=== PATIENT | female | born 1995 | race Caucasian/White ===

== ENCOUNTER 2021-05-10 16:23 | Emergency (ER) | payer OTHER, SELFPAY ==
[2021-05-10 16:23] VITALS: BP 186/115; PULSE 107; RESP 16; TEMP 36.4; O2SAT 98; BMI 68.5
[2021-05-10 16:34] VITALS: BP 168/111
--- NOTE | 2021-05-10 16:39 | EKG12_ITS ---
Test Reason : HYPERTENSION Blood Pressure : / mmHG Vent. Rate : 086 BPM Atrial Rate : 086 BPM P-R Int : 162 ms QRS Dur : 088 ms QT Int : 346 ms P-R-T Axes : 052 078 048 degrees QTc Int : 414 ms Normal sinus rhythm Normal ECG Confirmed by RYAN HODGE, GER ([id number]), editor index RHONDA ADORNO ([id number]) on 05/14/2021 10:31:41 AM Referred By: MR Confirmed By:GER DAVIS MD
--- NOTE | 2021-05-10 16:39 | CT_ITS ---
STUDY: CT BRAIN WITHOUT CONTRAST REASON FOR EXAM: Female, 26 years old. confusion RADIATION DOSAGE (If Supplied By Facility): CTDIvol = ( 44.99 ) mGy, DLP = ( 762.36 ) mGycm TECHNIQUE: Transaxial CT imaging of the brain was performed without administration of intravenous contrast material. Individualized dose optimization techniques were used for this CT. COMPARISON: No relevant priors. FINDINGS: Normal soft tissue structures. Normal calvarium. Normal size ventricles and extra-axial spaces for the patient''s age. Normal white matter tracts of the cerebral hemispheres. Normal basal ganglia and thalami. Normal brainstem. Normal cerebellum. There is no intracranial hemorrhage. There are no findings of an acute ischemic infarction. Normal visualized paranasal sinuses. CT/Brain/Head without Contrast IMPRESSION: Normal unenhanced CT scan of the brain. Electronically Signed: Lencho Chin MD at 17:19 EST Tel , Service support ,
--- NOTE | 2021-05-10 16:41 | EDS_ITS ---
HPI History of Present Illness Chief Complaint: Hypertension Narrative Narrative: Patient presenting for evaluation secondary to hypertension and abnormal feelings. Patient has a underlying history of migraines, she is on Topamax on a daily basis. Patient states that yesterday she started to have an abnormal feeling that potentially could have been consistent with the onset of a migraine so she took dejs-jez-[id number] pain medications and drink some caffeine. States that the symptoms seem to persist and were more atypical for a migraine. She reports that as a foggy type feeling, with her feeling somewhat slow to respond. She denies any numbness or weakness. She denies any pain. She denies any visual changes or speech difficulty associated with it. Patient took her blood pressure, it was noted to be in the 170s and 180s she presented to an outside facility who treated her for migraine, she was discharged but never actually had any sort of improvement or resolution of her symptoms. She is presenting today with the same symptoms and continued hypertension. She states that she does not typically have a history of hypertension and is on no medications for that. She denies any recent head injuries. She denies any recent illnesses. Review of systems otherwise negative [facility] Medical History no medical history Home Medications Topamax 05/10/21 [History Last Taken Unknown] lisinopril 5 mg PO DAILY #14 tab 05/10/21 [Rx Last Taken Unknown] Allergy/AdvReac Type Severity Reaction Status Date / Time [place] Allergy Hives Uncoded 05/10/21 16:25 [place] AdvReac Rash Uncoded 05/10/21 16:26 Family History no significant family his Surgical History no surgical history Social History Smoking Status: Never smoker ROS ROS ED Constitutional Constitutional ED: Denies chills or fever(s) ENT ENT ED: Denies rhinorrhea Cardiovascular Cardiovascular: Denies chest pain Respiratory/Chest Respiratory/Chest: Reports dyspnea; Denies cough Gastrointestinal Gastrointestinal: Denies abdominal pain, diarrhea, nausea or vomiting Genitourinary Genitourinary ED: Denies dysuria or hematuria Musculoskeletal Musculoskeletal: Denies back pain Integumentary Denies rash Neurologic Neurologic: Reports as per HPI; Denies paresthesias or weakness Psychiatric Psychiatric: Denies depression Endocrine Endocrinology: Denies fatigue Allergic/Immunologic Allergic/Immunologic ED: Denies urticaria EXAM Physical Exam Const Vital Signs: 05/10/21 16:23 05/10/21 16:34 05/10/21 16:37 Temperature 97.6 F L Temperature Source Temporal Pulse Rate 107 H Respiratory Rate 16 Respiratory Effort Short of Breath Respiratory Pattern Normal Blood Pressure 186/115 H 168/111 H Blood Pressure Mean 138 130 Pulse Ox 98 Oxygen Delivery Method Room Air Positive well nourished, well developed and obese General Appearance ED: well developed and NAD Nutritional Appearance: obese HEENT Reports moist mucous membranes Negative for trauma or tenderness Eyes EOMs intact bilaterally Neck no lymphadenopathy, supple and no JVD Chest Wall inspection of chest normal Resp normal respiratory effort and clear to auscultation bilaterally Cardio regular rate, regular rhythm, no murmurs and peripheral pulses 2+ throughout GI normal to inspection, nondistended, normoactive bowel sounds, non-tender and no masses Palpation: soft Back/Spine normal to inspection Extremity normal to inspection General Extremety ED: Negative for tenderness Neuro oriented x3 and no sensory deficits noted Sensorium / Orientation: alert Motor Exam: strength 5/5 throughout Psych mental status grossly normal Skin no rashes or lesions noted MDM MDM MDM Narrative Medical decision making narrative: Patient presenting for evaluation due to what sounds like symptomatic hypertension. An EKG was obtained was found to be unremarkable. CBC and chemistry and troponin were unremarkable. Chest x-ray by my personal review as well as radiology is unremarkable. CT imaging of the patient's brain was negative. Patient's blood pressure in the emergency department maintained around 180s and 160s systolic with about 115 diastolic. Patient likely has an element of persistent hypertension. I believe that she would benefit from treatment with antihypertensives. Patient will be started on a course of lisinopril. First dose given in the emergency department. Patient was discharged in stable condition. Lab Data Labs: Laboratory Results - last 24 hr 05/10/21 05/10/21 16:53 16:53 WBC 9.9 RBC 4.44 Hgb 11.5 L Hct 36.5 L MCV 82.2 MCH 25.9 L MCHC 31.5 L RDW Std Deviation 42.9 RDW Coeff of Ingrid 14.4 Plt Count 304 MPV 10.1 Immature Gran % (Auto) 0.400 Neut % (Auto) 57.9 Lymph % (Auto) 32.3 [place] % (Auto) 7.3 Eos % (Auto) 1.7 Baso % (Auto) 0.4 Absolute Neuts (auto) 5.7 Absolute Lymphs (auto) 3.19 Nucleated RBC % 0 Sodium 141 Potassium 3.8 Chloride 107 Carbon Dioxide 28.0 Anion Gap 6 BUN 15 Creatinine 0.76 Estim Creat Clear Calc 88.72 Est GFR (MDRD) Af Amer 119 Est GFR (MDRD) Non-Af 98 BUN/Creatinine Ratio 19.8 Glucose 106 Calcium 8.5 Troponin I High Sens 6 Radiography Diagnostic Testing: Clinical Impression(s) from Imaging Studies Brain CT 05/10/21 16:39 IMPRESSION: Normal unenhanced CT scan of the brain. Electronically Signed: Lencho Chin MD at 17:19 EST Tel , Service support , Chest X-Ray 05/10/21 17:10 IMPRESSION: Normal x-ray examination of the chest. Electronically Signed: Lencho Chin MD at 17:30 EST Tel , Service support , EKG Initial EKG: Attestation: I personally reviewed and interpreted this EKG as follows: (Normal sinus rhythm of [address] segments normal T waves normal TX and QTc intervals no evidence acute ischemia or arrhythmia) Discharge Plan Triage Chief Complaint: Hypertension ED Provider: Chago Nguyen Dx/Rx/DC Orders Clinical Impression: Hypertension Instructions: ED Hypertension New Begin Treatment Prescriptions: New lisinopril 5 mg tablet 5 mg PO DAILY Qty: 14 RF: 0 No Action Topamax RF: 0 Primary Care Provider: Lili Adhikari Referrals: Lili Adhikari MD [Primary Care Provider] - (Keep your scheduled appointment)
[2021-05-10 17:05] LABS: Absolute Lymphocyte Count 3.19 X10^3/uL (0.83-4.51); Absolute Neutrophil Count 5.7 X10^3/uL (2.0-7.7); Basophil# 0.04 X10^3/uL; Basophil% 0.4 % (0-1); Eosinophil# 0.17 X10^3/uL; Eosinophils% 1.7 % (0-5); Hematocrit 36.5 % (37-47); Hemoglobin 11.5 g/dL (12.0-15.0); Lymphocyte # 3.19 X10^3/ul (0.83-4.51); Lymphocyte % 32.3 % (19-41); Mean Corp Hgb Conc 31.5 g/dL (32-36); Mean Corpuscular Hgb 25.9 pg (27.0-32.0); Mean Corpuscular Volume 82.2 fL (81-99); Mean Platelet Vol. 10.1 fl (6.2-12.0); Monocyte# 0.72 X10^3/uL; Monocyte% 7.3 % (0-10); NRBC Flagged by Analyzer 0 % (0-5); Neutrophil # 5.72 X10^3/uL (2.7-7.7); Neutrophil % 57.9 % (47-70); Platelet Count 304 K/mm3 (150-450); RBC Distribution Width CV 14.4 % (11.6-14.6); RBC Distribution Width SD 42.9 fl (35.1-43.9); Red Blood Count 4.44 M/mm3 (4.2-5.4); White Blood Count 9.9 K/mm3 (4.4-11.0)
--- NOTE | 2021-05-10 17:10 | RAD_ITS ---
STUDY: X-RAY CHEST REASON FOR EXAM: Female, 26 years old. Dyspnea TECHNIQUE: PA and lateral views of the chest. COMPARISON: None. FINDINGS: The lungs are clear and expanded. There is no demonstrated pleural abnormality. Normal size heart. Normal mediastinum and sergey. Normal visualized pulmonary arteries. Normal visualized aortic arch and descending thoracic aorta. Normal visualized thoracic spine. Normal visualized ribs, clavicles, and shoulders. There is no demonstrated abnormality of the visualized soft tissue structures of the upper abdomen. RAD/Chest PA and Lateral IMPRESSION: Normal x-ray examination of the chest. Electronically Signed: Lencho Chin MD at 17:30 EST Tel , Service support ,
[2021-05-10 17:24] LABS: Anion Gap 6 (5-15); BUN 15 mg/dL (7-18); BUN/Creat Ratio 19.8 RATIO (10-20); Calcium,Total 8.5 mg/dL (8.5-10.1); Chloride 107 mmol/L (98-107); Creatinine, Serum 0.76 mg/dL (0.55-1.02); EST Glomerular Filtration Rate 98 mL/min (>60); Est Glom Filt Rate - Afr Amer 119 mL/min (>60); Estimated Creatinine Clearance 88.72 ml/min; Glucose 106 mg/dL (74-106); Potassium 3.8 mmol/L (3.5-5.1); Sodium Level 141 mmol/L (136-145); Troponin-I HS 6 pg/mL (3.0-54.0)
[2021-05-10 17:58] VITALS: BP 156/94; PULSE 93; RESP 18; O2SAT 98
[2021-05-10] MEDS: Lisinopril 5 MG Tablet PO (19:08)
[2021-05-10 19:10] VITALS: BP 138/98; PULSE 88; RESP 18; O2SAT 99
== END 2021-05-10 19:12 | disposition home or self-care (01) ==
PROVIDERS: Emergency Provider Emergency Medicine; PCP Internal Medicine
DX: I10 Essential (primary) hypertension (principal); R06.00 Dyspnea, unspecified; G43.909 Migraine, unspecified, not intractable, without status migrainosus; E66.9 Obesity, unspecified; Z79.899 Other long term (current) drug therapy
CPT/HCPCS: 70450; 71046; 80048; 84484; 85025; 93005; 99285; A4216

== ENCOUNTER 2023-05-06 03:02 | Emergency (ER) | payer BC, SELFPAY ==
[2023-05-06 03:04] VITALS: BP 188/115; PULSE 106; RESP 18; TEMP 36.6; O2SAT 99; BMI 70.6
--- NOTE | 2023-05-06 03:30 | EX.ED.VIS.HA ---
HPI History of Present Illness Chief Complaint: Headache Informant: patient Narrative Narrative: Nontraumatic headache couple hours prior to arrival. History of migraines. No fevers. No recent head injuries. Photophobia and phonophobia. Nausea and vomiting. History of similar. States when symptoms like this comes to the ER for migraine cocktail with improvement. Denies history of gastric ulcers or kidney injury. Prior similar symptoms: Yes PFSH PFSH Medical History ADD (attention deficit disorder) Anemia Migraine Home Medications bupropion HCl 300 mg 24 hr tablet, extended release 300 mg PO QHS 05/06/23 [History Last Taken Unknown] ferrous sulfate 325 mg (65 mg iron) tablet (iron) 325 mg PO DAILY 05/06/23 [History Last Taken Unknown] ondansetron 4 mg disintegrating tablet 4 mg PO Q6H PRN nausea and vomiting 05/06/23 [History Last Taken Unknown] rimegepant 75 mg disintegrating tablet (Nurtec ODT) 75 mg PO QODAY 05/06/23 [History Last Taken Unknown] rizatriptan 10 mg disintegrating tablet 10 mg translingual Q2H PRN migraine headache 05/06/23 [History Last Taken Unknown] Allergy/AdvReac Type Severity Reaction Status Date / Time bee venom protein (honey bee) Allergy Hives Verified 05/06/23 03:04 Food Allergies: Uncoded Allergy Hives Verified 05/06/23 03:04 Family History no significant family his Surgical History (Updated 05/06/23 @ 03:05 by Gisel Shaw) History of lumbar laminectomy for spinal cord decompression Hx of cholecystectomy Social History Smoking Status: Never smoker ROS ROS ED Constitutional Constitutional ED: Denies chills, fever(s) or sweats Eyes Eyes: Denies change in vision ENT ENT ED: Denies dysphagia or sore throat Cardiovascular Cardiovascular: Denies chest pain, leg edema, palpitations or racing heartbeat Respiratory/Chest Respiratory/Chest: Denies cough, dyspnea or dyspnea on exertion Gastrointestinal Gastrointestinal: Reports nausea and vomiting; Denies abdominal pain or diarrhea Genitourinary Genitourinary ED: Denies dysuria, hematuria or urinary frequency Musculoskeletal Musculoskeletal: Denies back pain, extremity pain or neck pain Integumentary Denies rash or wounds Neurologic Neurologic: Reports headache(s); Denies paresthesias or weakness EXAM Physical Exam Const Vital Signs: 05/06/23 03:04 05/06/23 05:05 Temperature 97.8 F Temperature Source Temporal Pulse Rate 106 H 84 Respiratory Rate 18 16 Blood Pressure 188/115 H 154/100 H Blood Pressure Mean 139 118 Pulse Ox 99 99 Positive well nourished and well developed General Appearance ED: well developed and NAD HEENT Reports moist mucous membranes normocephalic and atraumatic Eyes PERRL, EOMs intact bilaterally and conjunctivae normal General Eye ED: Yes normal appearance of both eyes Neck no lymphadenopathy, supple and no meningeal signs General: Negative for tenderness Chest Wall Chest: Negative for tenderness Resp normal respiratory effort and normal air movement Effort and Inspection: symmetric chest movement; Negative for respiratory distress Cardio regular rate, regular rhythm and no murmurs Peripheral Pulses: pulses 2+ throughout GI normal to inspection, nondistended, normoactive bowel sounds and non-tender Palpation: Negative for guarding or rebound tenderness present Back/Spine no CVA tenderness and no thoracic nor lumbar tenderness Extremity normal to inspection General Extremety ED: Negative for edema or tenderness General Extremity: Negative for edema Neuro oriented x3, CN's II-XII intact bilaterally and no sensory deficits noted Sensorium / Orientation: awake and alert Skin no rashes or lesions noted and no wounds MDM MDM MDM Narrative Medical decision making narrative: Interventions / MDM: Differential diagnosis: Migraine headache Diagnosis considered but do not suspect: No clinical meningitis My EKG interpretation: N/A Imaging independently reviewed and interpreted by myself: N/A External documents reviewed: N/A Test considered but not ordered:N/A ED course: History of migraines similar headaches with nausea and vomiting. IV established for fluids and migraine cocktail. 0420: Patient with improving symptoms. 0454: Clinically significantly better per patient. Discharged with outpatient follow-up. All questions were answered. Re-evaluation: stable Disposition discussed with patient/family/significant other: Patient Case discussed with consulting clinician: N/A This note was generated with [employer] dictation software. It may contain incorrect words, spelling, and punctuation that were not noted in checking the note before signing. Discharge Plan Triage Chief Complaint: Headache ED Provider: Devin Carey Dx/Rx/DC Orders Clinical Impression: Migraine headache, Nausea & vomiting Instructions: ED, Migraine (Classical) Prescriptions: No Action bupropion HCl 300 mg tablet extended release 24 hr 300 mg PO QHS Nurtec ODT 75 mg tablet,disintegrating 75 mg PO QODAY rizatriptan 10 mg tablet,disintegrating 10 mg translingual Q2H PRN (Reason: migraine headache) ondansetron 4 mg tablet,disintegrating 4 mg PO Q6H PRN (Reason: nausea and vomiting) Patient Comments: dissolve 1 tablet ON TONGUE every 6 hours if needed for nausea OR vomiting ferrous sulfate [iron] 325 mg (65 mg iron) tablet 325 mg PO DAILY Primary Care Provider: Lili Adhikari Referrals: Lili Adhikari MD [Primary Care Provider] - 1 Week Disposition Disposition: Home, Self Care Discharge Date/Time: 05/06/23 05:06
[2023-05-06] MEDS: 0.9% Normal Saline (1000mL) 1,000 ML 999 ML IV (03:43)
[2023-05-06] MEDS: Ketorolac 15 MG/ML Vial IV (03:45)
[2023-05-06] MEDS: Metoclopramide 10 MG/2 ML Vial IV (03:45)
[2023-05-06] MEDS: DiphenhydrAMINE 50 MG/ML Syringe 25 MG IV (03:45)
[2023-05-06 05:05] VITALS: BP 154/100; PULSE 84; RESP 16; O2SAT 99
== END 2023-05-06 05:06 | disposition home or self-care (01) ==
PROVIDERS: Emergency Provider Emergency Medicine; PCP Internal Medicine; Visit Provider Emergency Medicine
DX: G43.909 Migraine, unspecified, not intractable, without status migrainosus (principal); Z79.899 Other long term (current) drug therapy
CPT/HCPCS: 96361; 96374; 96375; 99283; J7030; A4216

== ENCOUNTER → 2023-08-26 | Outpatient (CLI) | payer BC, SELFPAY ==
[2023-08-26 17:22] LABS: Amylase 32 U/L (25-115); Lipase 16 U/L (13-75)
--- OUTSIDE RECORDS SUMMARY | 2023-08-27 00:25 | XMS RPT_ITS | CCD ---
Author Name Unknown Address [address] [place] [id number] Organization [facility] Care Team Providers Care 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 Name Role Phone DARIANA LUA DO Attending Unavailable DARIANA LUA DO Primary Care Unavailable DARIANA LUA DO Admitting Unavailable MAR ALTMAN Admitting Unavailable MAR ALTMAN Attending Unavailable MAR ALTMAN Primary Care Unavailable Onofre HODGE, Lili Primary Care Provider Onofre HODGE, Lili Primary Care Provider Lili Adhikari MD Primary Care Provider BRAXTON PARMAR MD Attending Unavailable PHYSICIAN, NONE Primary Care Unavailable GANTA, LILI Primary Care Unavailable OLDER, MIRELLA Attending Unavailable GANTA, LILI Primary Care Unavailable ENRIQUEZ, KAYLEY Attending Unavailable ENRIQUEZ, KAYLEY Referring Unavailable GANTA, LILI Primary Care Unavailable OLDER, MIRELLA Referring Unavailable OLDER, MIRELLA Referring Unavailable GANTA, LILI Primary Care Unavailable OLDER, MIRELLA Attending Unavailable GANTA, LILI Primary Care Unavailable ENRIQUEZ, KAYLEY Attending Unavailable ENRIQUEZ, KAYLEY Referring Unavailable GANTA, LILI Primary Care Unavailable OLDER, MIRELLA Attending Unavailable GANTA, LILI Primary Care Unavailable ENRIQUEZ, KAYLEY Attending Unavailable GANTA, LILI Primary Care Unavailable OLDER, MIRELLA Attending Unavailable GANTA, LILI Primary Care Unavailable OLDER, MIRELLA Referring Unavailable GANTA, LILI Primary Care Unavailable OLDER, MIRELLA Attending Unavailable GANTA, LILI Primary Care Unavailable OLDER, MIRELLA Referring Unavailable GANTA, LILI Primary Care Unavailable GANTA, LILI Primary Care Unavailable OLDER, MIRELLA Referring Unavailable Allergies Allergy Classification Reported Allergen(s) Allergy Type Date of Onset Reaction(s) Facility (20 sources) corn starch; Translations: [CORN STARCH] Drug Allergy 03-14-2021 Rash [facility] Work Phone: (20 sources) Seasonal allergy; Translations: [SEASONAL ALLERGIES] Allergy to substance 10-19-2014 Intolerance [facility] (20 sources) Bee Venom Protein (Honey Bee); Translations: [BEE VENOM PROTEIN (HONEY BEE)] Drug Allergy 03-14-2021 Hives [facility] Work Phone: Medications Current Medications Medication Drug Class(es) Dates Sig (Normalized) Sig (Original) phentermine hydrochloride 37.5 mg oral tablet (3 sources) Sympathomimetic Amine Anorectic Start: 10-19-2021 End: 11-18-2021 take 1 tablet by mouth once daily Phentermine HCl 37.5 mg tablet Indications: Morbid obesity (HCC) Take 1 tablet by mouth once daily for 30 days. 30 tablet 0 10/19/2021 11/18/2021 Active Completed/Discontinued Medications Medication Drug Class(es) Dates Sig (Normalized) Sig (Original) amLODIPine 2.5 mg oral tablet (3 sources) Dihydropyridine Calcium Channel Kathy Start: 08-08-2023 take 1 tablet by mouth once daily amLODIPine (NORVASC) 2.5 mg tablet Take 1 tablet by mouth once daily. 30 tablet 1 08/08/2023 Active Problems Active Problems Problem Classification Problem Date Documented Date Episodic/Chronic Administrative/social admission (2 sources) Patient encounter status; Translations: [Dietary counseling and surveillance] Episodic Attention-deficit, conduct, and disruptive behavior disorders (5 sources) Adult attention deficit hyperactivity disorder ; Translations: [Attention-deficit hyperactivity disorder, unspecified type] Chronic Attention-deficit, conduct, and disruptive behavior disorders (1 source) Attention-deficit hyperactivity disorder, unspecified type; Translations: [Adult ADHD] Onset: 11-29-2022 Chronic Deficiency and other anemia (1 source) Iron deficiency anemia; Translations: [Iron deficiency anemia, unspecified] 02-14-2023 Episodic Diseases of white blood cells (2 sources) Leukocytosis; Translations: [Elevated white blood cell count, unspecified] Onset: 08-14-2023 08-13-2023 Chronic Essential hypertension (20 sources) Essential hypertension; Translations: [Essential (primary) hypertension] Onset: 08-29-2021 08-29-2021 Chronic Headache; including migraine (20 sources) Migraine; Translations: [Migraine, unspecified, not intractable, without status migrainosus] Onset: 03-14-2021 03-14-2021 Chronic Other nutritional; endocrine; and metabolic disorders (16 sources) Morbid obesity; Translations: [Body mass index (BMI) 60.0-69.9, adult] Onset: 12-02-2014 Chronic Other nutritional; endocrine; and metabolic disorders (11 sources) Severe obesity; Translations: [Morbid (severe) obesity due to excess calories] Onset: 12-02-2014 12-06-2022 Chronic Other nutritional; endocrine; and metabolic disorders (3 sources) Morbid (severe) obesity due to excess calories; Translations: [Class 3 severe obesity with serious comorbidity and body mass index (BMI) of 60.0 to 69.9 in adult, unspecified obesity type (HCC)] Onset: 12-02-2014 Chronic Other nutritional; endocrine; and metabolic disorders (1 source) Body mass index (BMI) 60.0-69.9, adult; Translations: [Class 3 severe obesity with serious comorbidity and body mass index (BMI) of 60.0 to 69.9 in adult, unspecified obesity type (HCC)] Onset: 02-07-2023 Chronic Other nutritional; endocrine; and metabolic disorders (1 source) Body mass index (BMI) 50.0-59.9, adult; Translations: [Class 3 severe obesity with body mass index (BMI) of 50.0 to 59.9 in adult, unspecified obesity type, unspecified whether serious comorbidity present (HCC)] Onset: 12-06-2022 Chronic Past or Other Problems Problem Classification Problem Date Documented Date Episodic/Chronic Contraceptive and procreative management (1 source) Encounter for other general counseling and advice on contraception; Translations: [General counseling and advice for contraceptive management] Onset: 12-06-2022 Episodic Immunizations and screening for infectious disease (2 sources) Encounter for screening for infections with a predominantly sexual mode of transmission; Translations: [Encounter for immunization] Onset: 12-06-2022 Episodic Nausea and vomiting (20 sources) Postoperative nausea and vomiting; Translations: [Nausea with vomiting, unspecified] Onset: 12-02-2014 12-02-2014 Episodic Nutritional deficiencies (2 sources) Iron deficiency; Translations: [Iron deficiency] Onset: 02-10-2023 02-10-2023 Episodic Other screening for suspected conditions (not mental disorders or infectious disease) (1 source) Encounter for screening for malignant neoplasm of cervix; Translations: [Screening for cervical cancer] Onset: 12-06-2022 Episodic Results Test Name Value Interpretation Reference Range Facil ity Vital Signs Date Time Vital Sign Value Performing Clinician Hugh hein 08-08-2023 14:08-0500 Diastolic blood pressure 99 mm[Hg] Mirella Older WOOD CAULKER.MARKET RESEARCH ANALYST Work Phone: [facility] 08-08-2023 14:08-0500 Systolic blood pressure 155 mm[Hg] Mirella Older WOOD CAULKER.MARKET RESEARCH ANALYST Work Phone: [facility] 08-08-2023 13:37-0500 Body weight 179.17 kg Mirella Older WOOD CAULKER.MARKET RESEARCH ANALYST Work Phone: [facility] 08-08-2023 13:37-0500 Heart rate 89 /min Mirella Older WOOD CAULKER.MARKET RESEARCH ANALYST Work Phone: [facility] 08-08-2023 13:37-0500 Respiratory rate 16 /min Mirella Older WOOD CAULKER.MARKET RESEARCH ANALYST Work Phone: [facility] 08-08-2023 13:37-0500 SaO2% (BldA) [Mass fraction] 97 % Mirella Older WOOD CAULKER.MARKET RESEARCH ANALYST Work Phone: [facility] 02-07-2023 13:05-0400 Body weight 162.84 kg Mirella Older WOOD CAULKER.MARKET RESEARCH ANALYST Work Phone: [facility] 02-07-2023 13:05-0400 Diastolic blood pressure 76 mm[Hg] Mirella Older WOOD CAULKER.MARKET RESEARCH ANALYST Work Phone: [facility] 02-07-2023 13:05-0400 Heart rate 99 /min Mirella Older WOOD CAULKER.MARKET RESEARCH ANALYST Work Phone: [facility] 02-07-2023 13:05-0400 Respiratory rate 16 /min Mirella Older WOOD CAULKER.MARKET RESEARCH ANALYST Work Phone: [facility] 02-07-2023 13:05-0400 SaO2% (BldA) [Mass fraction] 98 % Mirella Older WOOD CAULKER.MARKET RESEARCH ANALYST Work Phone: [facility] 02-07-2023 13:05-0400 Systolic blood pressure 122 mm[Hg] Mirella Older WOOD CAULKER.MARKET RESEARCH ANALYST Work Phone: [facility] 01-14-2023 15:59-0400 Diastolic blood pressure 70 mm[Hg] Kayley Enriquez WOOD CAULKER.MARKET RESEARCH ANALYST Work Phone: [facility] 01-14-2023 15:59-0400 Heart rate 89 /min Kayley Enriquez WOOD CAULKER.MARKET RESEARCH ANALYST Work Phone: [facility] 01-14-2023 15:59-0400 SaO2% (BldA) [Mass fraction] 98 % Kayley Enriquez WOOD CAULKER.MARKET RESEARCH ANALYST Work Phone: [facility] 01-14-2023 15:59-0400 Systolic blood pressure 124 mm[Hg] Kayley Enriquez WOOD CAULKER.MARKET RESEARCH ANALYST Work Phone: [facility] 01-14-2023 15:25-0400 Body weight 163.75 kg Kayley Enriquez WOOD CAULKER.MARKET RESEARCH ANALYST Work Phone: [facility] 12-27-2022 08:12-0400 Body weight 162.84 kg Mirella Older WOOD CAULKER.MARKET RESEARCH ANALYST Work Phone: [facility] 12-27-2022 08:12-0400 Diastolic blood pressure 88 mm[Hg] Mirella Older WOOD CAULKER.MARKET RESEARCH ANALYST Work Phone: [facility] 12-27-2022 08:12-0400 Heart rate 80 /min Mirella Older WOOD CAULKER.MARKET RESEARCH ANALYST Work Phone: [facility] 12-27-2022 08:12-0400 Respiratory rate 16 /min Mirella Older WOOD CAULKER.MARKET RESEARCH ANALYST Work Phone: [facility] 12-27-2022 08:12-0400 Systolic blood pressure 132 mm[Hg] Mirella Older WOOD CAULKER.MARKET RESEARCH ANALYST Work Phone: [facility] 11-29-2022 11:20-0400 Diastolic blood pressure 79 mm[Hg] Mirella Older WOOD CAULKER.MARKET RESEARCH ANALYST Work Phone: [facility] 11-29-2022 11:20-0400 Systolic blood pressure 123 mm[Hg] Mirella Older WOOD CAULKER.MARKET RESEARCH ANALYST Work Phone: [facility] 11-29-2022 10:54-0400 Body temperature 98.4 [degF] Mirella Older WOOD CAULKER.MARKET RESEARCH ANALYST Work Phone: [facility] 11-29-2022 10:54-0400 Body weight 160.57 kg Mirella Older WOOD CAULKER.MARKET RESEARCH ANALYST Work Phone: [facility] 11-29-2022 10:54-0400 Heart rate 84 /min Mirella Older WOOD CAULKER.MARKET RESEARCH ANALYST Work Phone: [facility] 11-29-2022 10:54-0400 Respiratory rate 16 /min Mirella Older WOOD CAULKER.MARKET RESEARCH ANALYST Work Phone: [facility] 11-29-2022 10:54-0400 SaO2% (BldA) [Mass fraction] 99 % Mirella Older WOOD CAULKER.MARKET RESEARCH ANALYST Work Phone: [facility] 08-30-2022 11:33-0500 Diastolic blood pressure 82 mm[Hg] Mirella Older WOOD CAULKER.MARKET RESEARCH ANALYST Work Phone: [facility] 08-30-2022 11:33-0500 Systolic blood pressure 141 mm[Hg] Mirella Older WOOD CAULKER.MARKET RESEARCH ANALYST Work Phone: [facility] 08-30-2022 10:54-0500 Body weight 158.31 kg Mirella Older WOOD CAULKER.MARKET RESEARCH ANALYST Work Phone: [facility] 08-30-2022 10:54-0500 Heart rate 76 /min Mirella Older WOOD CAULKER.MARKET RESEARCH ANALYST Work Phone: [facility] 08-30-2022 10:54-0500 Respiratory rate 16 /min Mirella Older WOOD CAULKER.MARKET RESEARCH ANALYST Work Phone: [facility] 01-03-2022 12:55-0400 Body weight 158.76 kg Mirella Older WOOD CAULKER.MARKET RESEARCH ANALYST Work Phone: [facility] 01-03-2022 12:55-0400 Diastolic blood pressure 74 mm[Hg] Mirella Older WOOD CAULKER.MARKET RESEARCH ANALYST Work Phone: [facility] 01-03-2022 12:55-0400 Heart rate 80 /min Mirella Older WOOD CAULKER.MARKET RESEARCH ANALYST Work Phone: [facility] 01-03-2022 12:55-0400 Respiratory rate 16 /min Mirella Older WOOD CAULKER.MARKET RESEARCH ANALYST Work Phone: [facility] 01-03-2022 12:55-0400 Systolic blood pressure 122 mm[Hg] Mirella Older WOOD CAULKER.MARKET RESEARCH ANALYST Work Phone: [facility] 11-22-2021 14:03-0400 Body weight 162.39 kg Mirella Older WOOD CAULKER.MARKET RESEARCH ANALYST Work Phone: [facility] 11-22-2021 14:03-0400 Diastolic blood pressure 78 mm[Hg] Mirella Older WOOD CAULKER.MARKET RESEARCH ANALYST Work Phone: [facility] 11-22-2021 14:03-0400 Heart rate 82 /min Mirella Older WOOD CAULKER.MARKET RESEARCH ANALYST Work Phone: [facility] 11-22-2021 14:03-0400 Respiratory rate 16 /min Mirella Older WOOD CAULKER.MARKET RESEARCH ANALYST Work Phone: [facility] 11-22-2021 14:03-0400 Systolic blood pressure 132 mm[Hg] Mirella Older WOOD CAULKER.MARKET RESEARCH ANALYST Work Phone: [facility] 10-25-2021 14:09-0400 Body weight 164.2 kg Mirella Older WOOD CAULKER.MARKET RESEARCH ANALYST Work Phone: [facility] 10-25-2021 14:09-0400 Diastolic blood pressure 82 mm[Hg] Mirella Older WOOD CAULKER.MARKET RESEARCH ANALYST Work Phone: [facility] 10-25-2021 14:09-0400 Heart rate 88 /min Mirella Older WOOD CAULKER.MARKET RESEARCH ANALYST Work Phone: [facility] 10-25-2021 14:09-0400 Respiratory rate 16 /min Mirella Older WOOD CAULKER.MARKET RESEARCH ANALYST Work Phone: [facility] 10-25-2021 14:09-0400 Systolic blood pressure 128 mm[Hg] Mirella Older WOOD CAULKER.MARKET RESEARCH ANALYST Work Phone: [facility] 09-27-2021 14:01-0400 Body weight 166.92 kg Mirella Oconnell WOOD CAULKER.MARKET RESEARCH ANALYST Work Phone: [facility] 09-27-2021 14:01-0400 Diastolic blood pressure 84 mm[Hg] Mirella Oconnell WOOD CAULKER.MARKET RESEARCH ANALYST Work Phone: [facility] 09-27-2021 14:01-0400 Heart rate 92 /min Mirella Older WOOD CAULKER.MARKET RESEARCH ANALYST Work Phone: [facility] 09-27-2021 14:01-0400 Respiratory rate 16 /min Mirella Older WOOD CAULKER.MARKET RESEARCH ANALYST Work Phone: [facility] 09-27-2021 14:01-0400 Systolic blood pressure 130 mm[Hg] Mirella Oconnell WOOD CAULKER.MARKET RESEARCH ANALYST Work Phone: [facility] Encounters Encounter Date Encounter Type Care Provider Facility Start: 08-15-2023 Telephone encounter Mirella Oconnell WOOD CAULKER.MARKET RESEARCH ANALYST Work Phone: [facility] Procedures Date Procedure Procedure Detail Performing Clinician Start: 01-14-2023 Urine test visual color cmprsn nirmals Kayley Enriquez WOOD CAULKER.MARKET RESEARCH ANALYST Work Phone: Start: 09-27-2021 Adult depression screening assessment Mirella Oconnell WOOD CAULKER.MARKET RESEARCH ANALYST Work Phone: Plan of Treatment Date Care Activity Detail Author Start: 08-24-2032 Urine microalbumin profile [facility] Start: 12-06-2025 PAP TESTING PAP TESTING [facility] Start: 12-06-2025 Screening for malign ant neoplasm of cervix Pap Testing [facility] Start: 08-08-2024 Annual PCP Team Ion Implant Machine Operator mary Disease Visit Annual PCP Team Chronic Disease Visit [facility] Start: 02-08-2024 ANNUAL PCP TEAM MANAGER HOME [facility]ALTHCARE MARY DISEASE VISIT ANNUAL PCP TEAM CHRONIC DISEASE VISIT [facility] Start: 02-08-2024 BP CONTROLLED (<130/80) BP CONTROLLE D (<130/80) [facility] Start: 01-15-2024 BP CONTROLLED (<130/80) BP CONTROLLE D (<130/80) [facility] Start: 12-28-2023 ANNUAL PCP TEAM MANAGER HOME HEALTHCARE MARY DISEASE VISIT ANNUAL PCP TEAM CHRONIC DISEASE VISIT [facility] Start: 11-30-2023 ANNUAL PCP TEAM MANAGER HOME HEALTHCARE MARY DISEASE VISIT ANNUAL PCP TEAM CHRONIC DISEASE VISIT [facility] Start: 11-30-2023 BP CONTROLLED (<130/80) BP CONTROLLE D (<130/80) [facility] Start: 08-31-2023 ANNUAL PCP TEAM MANAGER HOME HEALTHCARE MARY DISEASE VISIT ANNUAL PCP TEAM CHRONIC DISEASE VISIT [facility] Start: 08-31-2023 HEPATITIS B (1 of 3 - 3-dose series) HEPATITIS B (1 of 3 - 3-dose series) [facility] Immunizations Immunization Date Immunization Notes Care Provider Rogerio joseph 12-06-2022 Human Papillomavirus 9-valent vaccine Mirella Older WOOD CAULKER.[facility] Work Phone: [facility] Work Phone: 08-24-2022 tetanus toxoid, redu dimitri diphtheria toxoid, and acellular pertussis vaccine, adsorbed Mirella Older WOOD CAULKER.[facility] Work Phone: [facility] Work Phone: 04-06-2021 influenza, seasonal, injectable Mirella Older WOOD CAULKER.[facility] Work Phone: [facility] 04-06-2021 influenza virus vacc ine, unspecified formulation Mirella Older WOOD CAULKER.[facility] Work Phone: [facility] 08-25-2013 human papilloma viru s vaccine, quadrivalent Mirella Older WOOD CAULKER.[facility] Work Phone: [facility] Work Phone: 08-25-2013 immune globulin, intramuscular Mirella Older WOOD CAULKER.MARKET RESEARCH ANALYST Work Phone: [facility] Work Phone: 01-10-2000 diphtheria, tetanus toxoids and acellular pertussis vaccine, unspecified formulation Mirella Older WOOD CAULKER.[facility] Work Phone: [facility] Work Phone: 01-10-2000 measles, mumps and rubella virus vaccine Mirella Older WOOD CAULKER.[facility] Work Phone: [facility] Work Phone: 01-10-2000 trivalent poliovirus vaccine, live, oral [facility] Eagle [facility] Work [facility]: [facility] Work Phone: Payers Date Payer Category Payer Unknown BLUE CARD PPO 2022 Unknown ANTHEM BLUE CARD PPO OOS [id number] 2022-Present [phone] [address] [place] [address] PPO [id number] 2022 Unknown [id number] 2020 Private Health Insurance [facility] CHOICE PLUS [id number] 2020-Present [phone] [address] [place] [address] HMO [id number] 1995 Unknown [id number] 1995 Unknown [id number] 1995 Unknown [id number] Private Health Insurance [id number] Social History Date Type Detail Facility Start: 03-08-2021 End: 12-06-2022 Tobacco smoking status NHIS Never smoked tobacco [facility] Work Phone: Start: 09-21-2021 End: 01-03-2022 Alcohol intake Current non-drinker of alcohol (finding) [facility] Start: 08-28-2021 End: 08-24-2022 History SDOH Alcohol Frequency 2 [facility] Start: 08-28-2021 End: 08-24-2022 History SDOH Alcohol Std Drinks 1 [facility] Start: 08-28-2021 History SDOH Social Connections Phone 4 [facility] Start: 08-28-2021 End: 08-24-2022 History SDOH Social Connections Living 7 [facility] Start: 08-28-2021 End: 08-24-2022 History SDOH Physical Activity DPW 3 [facility] Start: 08-28-2021 End: 08-24-2022 History SDOH Financial 5 [facility] Start: 1995 Sex Assigned At Female [facility] Start: 09-17-2021 End: 01-03-2022 Exposure to SARS-CoV-2 (event) Unable to assess [facility] Start: 03-08-2021 End: 12-06-2022 Tobacco use and exposure Smokeless tobacco non-user [facility] Start: 08-24-2022 History SDOH Social Connections Meetings 98 [facility] Start: 08-24-2022 History SDOH Physical Activity MPS 6 [facility] Start: 12-06-2022 End: 03-28-2023 Alcohol intake Current drinker of alcohol (finding) [facility] Start: 12-06-2022 Alcohol Comment rare [facility] Start: 08-23-2022 End: 11-29-2022 History of Social function [facility] Start: 08-23-2022 End: 11-29-2022 Social connection and isolation panel [facility] Do you belong to any clubs or organizations such as quaker groups, unions, fraternal or athletic groups, or school groups? No [facility] How often do you att end meetings of the clubs or organizations you belong to? Patient refused [facility] Are you now , , , , never or living with a partner? Never [facility] How often to you hav e a drink containing alcohol? 2-4 times a month [facility] How many standard dr inks containing alcohol do you have on a typical day? 1 or 2 [facility] How often do you hav e 6 or more drinks on 1 occasion? Never [facility] Do you feel stress - tense, restless, nervous, or anxious, or unable to sleep at night because your mind is troubled all the time - these days [OSQ] Not at all [facility] (I/We) worried whemarlon er (my/our) food would run out before (I/we) got money to buy more. Never true [facility] Start: 09-27-2021 Gender identity Identifies as female gender (finding) [facility] Start: 09-27-2021 Sexual orientation Heterosexual (finding) [facility] Clinical Notes 09-27-2021 to 08-18-2023 Telephone Encounter - Mirella Oconnell APRN.CNP - 08/18/2023 7:26 AM ESTTelephone Encounter - Primo Cartagena Ma - 08/15/2023 3:14 PM ESTTelephone Encounter - Mirella Oconnell APRN.CNP - 08/15/2023 1:35 PM EST Note Date & Type Note Facility 08-18-2023 Miscellaneous Notes Noted. Will review further at follow up. Mirella Oconnell APRN.CNP Patient started at the beginning of last week, thought she was done. Woke up this am and started bleeding heavily. Tenderness in lower abdomen, not cramping, just general tenderness. Advised patient she may reach out to her Hot Mix Operator if having concerns with cycle, verbalized understanding. Is patient by any chance on her menstrual cycle? If not we need to recheck her urine at her follow up appointment. Thank you Mirella Oconnell APRN.CNP documented in this encounter [facility] 08-14-2023 Miscellaneous Notes Patient notified. Urine is ordered. Will need evaluated for sinus concerns if they continue. Thank you Mirella Oconnell APRN.CNP patient returned call: patient has sinus drainage, cough, UA frequency. Nurse tried to book appt but no available openings left for this week. Please advise on if patient can be worked in. Patient needs called with further information Left message for return call. Any sinus drainage? Cough? Fever? Difficulty or change in urination? Bowel changes? Abdominal pain? If so, we will do further evaluation. If not, will order a urine sample and then recheck blood work at next follow up. Thank you Mriella Oconnell APRN.GIOVANI Pt called and is notified of providers results and questions. Pt voices understanding. She states no signs of infection that she can tell, denies a fever. She reports that she still has the headache it has lightened up a little, but isn't gone. Pt denies any recent steroid use. Annie Crisostomo RN White blood count is higher than usual. Any concern for infection? How is her headache? Any recent steroid usage? Thank you Mirella Oconnell APRN.GIOVANI documented in this encounter [facility] 08-08-2023 Note HNO ID: [id number] Author: MIRELLA OCONNELL APRN.CNP Service: ? Author Type: Nurse Practitioner Type: Progress Notes Filed: 08/08/2023 15:13 Note Text: CC: Patient presents with: Recheck: 6 month follow up HPI Francesca Kate is a 28 year old female who presents today for follow up but has had changes in her migraines with them being more severe, more frequent, and now has a visual aura prior to pain beginning. Increase in migraines now with aura. Pain is more severe and has had to go to the ER twice over the last few months. Most days she has some form of headache but a few times a week will feel like something is crushing her head to both sides. Also has nausea, sensitivity to sound, and sensitivity to light. Denies any recent or previous head injuries, dizziness, syncope, weakness, or numbness. No changes in medications or supplements. Last had eye exam in 2022. Will take ibuprofen, tylenol, benadryl, triptan to try and get rid of migraines but not always effective. HTN: Ms. Kate indicates that she is feeling well and denies any symptoms referable to elevated blood pressure. Specifically denies chest pain, palpitations, dyspnea, and peripheral edema. Is not currently on any blood pressure medications. She does not check BP's generally. Feels like the pain from migraines makes it worse. Last 3 Encounter BP Readings: Date: BP: 08/08/2023 162/100 - 155/99 03/28/2023 168/110 02/07/2023 122/76 REVIEW OF SYSTEMS See HPI PAST MEDICAL HISTORY Diagnosis Date ADD (attention deficit disorder) Class 3 severe obesity with body mass index (BMI) of 50.0 to 59.9 in adult, unspecified obesity type, unspecified whether serious comorbidity present (HCC) Migraine headaches Migraine with aura PAST SURGICAL HISTORY Procedure Laterality Date CORE DECOMPRESSION - HIP Left 06/30/2010 EGD INSERT INTRAUTERINE DEVICE 01/14/2023 LAPAROSCOPY SURG CHOLECYSTECTOMY 12/07/2014 ALLERGIES Baby Powder Pure Cornstarch [Harper Starch], Bee Venom Protein (Honey Bee), and Seasonal Allergies MEDICATIONS buPROPion XL (WELLBUTRIN XL) 300 mg 24 hr tablet Take 1 tablet by mouth once daily. topiramate (TOPAMAX) 25 mg tablet Take 1 tablet by mouth two times a day. amLODIPine (NORVASC) 2.5 mg tablet Take 1 tablet by mouth once daily. ferrous sulfate 325 mg (65 mg iron) tablet Take 1 tablet by mouth once daily. rimegepant (NURTEC ODT) 75 mg disintegrating tablet Take 1 tablet by mouth every other day. levonorgestrel (MIRENA) 21 mcg/24 hours (8 yrs) 52 mg IUD 1 Each by INTRAUTERINE route as directed. ondansetron orally disintegrating (ZOFRAN ODT) 4 mg disintegrating tablet Take 1 tablet by mouth every 6 hours as needed for nausea/vomiting. rizatriptan ([facility] [facility] MAGISTRATE) 10 mg disintegrating tablet Take 1 tablet by mouth as needed. May repeat in 2 hours if needed. Blood Pressure Kit-Extra Large kit 1 Each once daily. FAMILY HISTORY Problem Relation Age of Onset Obesity Mother Alcohol/Drug Father Obesity Father Obesity Sister Obesity Sister No Known Problems Maternal Grandmother Alcohol/Drug Maternal Grandfather Cancer Maternal Grandfather Diabetes Maternal Grandfather Obesity Maternal Grandfather Obesity Paternal Grandmother Alcohol/Drug Paternal Grandfather Colon Cancer Paternal Grandfather Social History Tobacco Use Smoking status: Never Smokeless tobacco: Never Vaping Use Vaping Use: Never used Substance Use Topics Alcohol use: Yes Comment: rare Drug use: No PHYSICAL EXAM BP 155/99 Pulse 89 Resp 16 Wt (!) 179.2 kg (395 lb) LMP 03/07/2023 (Exact Date) SpO2 97% BMI 67.80 kg/m? General Appearance: well appearing, in no acute distress, alert Pysch: mood and affect broad and appropriate Skin: Skin color, texture, turgor normal for age; Eyes: PERRLA, EOM's intact, conjunctiva pink and moist, no icterus, sclera white, non-injected Lungs: Lungs clear to auscultation. No wheezing, rhonchi, rales. Heart: RRR without murmur, gallop, or rubs. No ectopy Neurological: Gait normal. Reflexes normal and symmetric. Sensation intact., speech normal, mental status intact Health maintenance reviewed with patient: Hepatitis C Screening Never done HIV Screening Never done BP Controlled (<130/80) due on 10/25/2022 Influenza Vaccine(1) due on 02/28/2023 Covid-19 Vaccine( season) due on 02/28/2023 HPV Vaccine(3 - 3-dose series) due on 04/07/2023 Depression Assessment due on 06/30/2023 Hepatitis B Vaccine(1 of 3 - 3-dose series) due on 08/31/2023 Annual PCP Team Chronic Disease Visit due on 02/08/2024 Pap Testing due on 12/06/2025 DTaP,Tdap,Td Vaccine(3 - Td or Tdap) due on 08/24/2032 DATA REVIEWED: No new labs ASSESSMENT/PLAN: 1. Migraine with aura and without status migrainosus, not intractable - ICD9: 346.00, ICD10: G43.109 (primary diagnosis) - with the recent increase and addition of aura feel CT of brain is indicated - topirimate martinez (more content not included)... [facility] 08-08-2023 History of Presen t illness Narrative CC: Patient presents with: Recheck: 6 month follow up HPI Francesca Kate is a 28 year old female who presents today for follow up but has had changes in her migraines with them being more severe, more frequent, and now has a visual aura prior to pain beginning. Increase in migraines now with aura. Pain is more severe and has had to go to the ER twice over the last few months. Most days she has some form of headache but a few times a week will feel like something is crushing her head to both sides. Also has nausea, sensitivity to sound, and sensitivity to light. Denies any recent or previous head injuries, dizziness, syncope, weakness, or numbness. No changes in medications or supplements. Last had eye exam in 2022. Will take ibuprofen, tylenol, benadryl, triptan to try and get rid of migraines but not always effective. HTN: Ms. Kate indicates that she is feeling well and denies any symptoms referable to elevated blood pressure. Specifically denies chest pain, palpitations, dyspnea, and peripheral edema. Is not currently on any blood pressure medications. She does not check BP's generally. Feels like the pain from migraines makes it worse. Last 3 Encounter BP Readings: Date: BP: 08/08/2023 162/100 - 155/99 03/28/2023 168/110 02/07/2023 122/76 REVIEW OF SYSTEMS See HPI PAST MEDICAL HISTORY Diagnosis Date ADD (attention deficit disorder) Class 3 severe obesity with body mass index (BMI) of 50.0 to 59.9 in adult, unspecified obesity type, unspecified whether serious comorbidity present (HCC) Migraine headaches Migraine with aura PAST SURGICAL HISTORY Procedure Laterality Date CORE DECOMPRESSION - HIP Left 06/30/2010 EGD INSERT INTRAUTERINE DEVICE 01/14/2023 LAPAROSCOPY SURG CHOLECYSTECTOMY 12/07/2014 ALLERGIES Baby Powder Pure Cornstarch [Harper Starch], Bee Venom Protein (Honey Bee), and Seasonal Allergies MEDICATIONS buPROPion XL (WELLBUTRIN XL) 300 mg 24 hr tablet Take 1 tablet by mouth once daily. topiramate (TOPAMAX) 25 mg tablet Take 1 tablet by mouth two times a day. amLODIPine (NORVASC) 2.5 mg tablet Take 1 tablet by mouth once daily. ferrous sulfate 325 mg (65 mg iron) tablet Take 1 tablet by mouth once daily. rimegepant (NURTEC ODT) 75 mg disintegrating tablet Take 1 tablet by mouth every other day. levonorgestrel (MIRENA) 21 mcg/24 hours (8 yrs) 52 mg IUD 1 Each by INTRAUTERINE route as directed. ondansetron orally disintegrating (ZOFRAN ODT) 4 mg disintegrating tablet Take 1 tablet by mouth every 6 hours as needed for nausea/vomiting. rizatriptan ([facility] [address] MAGISTRATE) 10 mg disintegrating tablet Take 1 tablet by mouth as needed. May repeat in 2 hours if needed. Blood Pressure Kit-Extra Large kit 1 Each once daily. FAMILY HISTORY Problem Relation Age of Onset Obesity Mother Alcohol/Drug Father Obesity Father Obesity Sister Obesity Sister No Known Problems Maternal Grandmother Alcohol/Drug Maternal Grandfather Cancer Maternal Grandfather Diabetes Maternal Grandfather Obesity Maternal Grandfather Obesity Paternal Grandmother Alcohol/Drug Paternal Grandfather Colon Cancer Paternal Grandfather Social History Tobacco Use Smoking status: Never Smokeless tobacco: Never Vaping Use Vaping Use: Never used Substance Use Topics Alcohol use: Yes Comment: rare Drug use: No PHYSICAL EXAM BP 155/99 Pulse 89 Resp 16 Wt (!) 179.2 kg (395 lb) LMP 03/07/2023 (Exact Date) SpO2 97% BMI 67.80 kg/m General Appearance: well appearing, in no acute distress, alert Pysch: mood and affect broad and appropriate Skin: Skin color, texture, turgor normal for age; Eyes: PERRLA, EOM's intact, conjunctiva pink and moist, no icterus, sclera white, non-injected Lungs: Lungs clear to auscultation. No wheezing, rhonchi, rales. Heart: RRR without murmur, gallop, or rubs. No ectopy Neurological: Gait normal. Reflexes normal and symmetric. Sensation intact., speech normal, mental status intact Health maintenance reviewed with patient: Hepatitis C Screening Never done HIV Screening Never done BP Controlled (<130/80) due on 10/25/2022 Influenza Vaccine(1) due on 02/28/2023 Covid-19 Vaccine(3 - season) due on 02/28/2023 HPV Vaccine(3 - 3-dose series) due on 04/07/2023 Depression Assessment due on 06/30/2023 Hepatitis B Vaccine(1 of 3 - 3-dose series) due on 08/31/2023 Annual PCP Team Chronic Disease Visit due on 02/08/2024 Pap Testing due on 12/06/2025 DTaP,Tdap,Td Vaccine(3 - Td or Tdap) due on 08/24/2032 DATA REVIEWED: No new labs ASSESSMENT/PLAN: 1. Migraine with aura and without status migrainosus, not intractable - ICD9: 346.00, ICD10: G43.109 (primary diagnosis) - with the recent increase and addition of aura feel CT of brain is indicated - topirimate had worked in the past at first, so will continue nurtec and add the topiramate. - no red flag symptoms on exam. - go to ER for sudden and/or severe headache, weakness, numbness, confusion or any other urgent concern - TOPIRAMATE 25 MG TABLET - CT BRAIN WO IVCON - COMP METABOLIC PANEL - CBC - CONSULT TO NEUROLOGY 2. Essential hypertension - ICD9: 401.9, ICD10: I10 - Uncontrolled - adding amlodipine low dose. Feel propanolol would not be effective enough. - follow up in 2-4 weeks. - Recommend home blood pressure monitoring, to bring results to next visit - Encouraged sodium restriction, DASH or Mediterranean diet - Recommend regular aerobic exercise - COMP METABOLIC PANEL - CBC Prescription instructions reviewed with patient as applicable. Potential red flag symptoms discussed with the patient. Reviewed appropriate action plan to take if red flag symptoms occur. Patient agreeable to treatment plan. Mirella Oconnell APRN.CNP documented in this encounter [facility] 03-28-2023 Note HNO ID: [id number] Author: Kayley Enriquez APRN.CNP Service: ? Author Type: Nurse Practitioner Type: Progress Notes Filed: 03/28/2023 8:04 AM Note Text: Med Aide offered: Patient declines. Francesca Kate presents today for IUD check. She had a Mirena placed on 01/14/2023 for contraception. Menses every 28-30 days lasting 3 days. 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 She has had spotting for 2 weeks after menses since placement. REVIEW OF SYSTEMS: No fever, chills or pain PHYSICAL EXAMINATION: BP 168/110 Wt 371 lb (168.3kg) LMP 03/07/2023 ABDOMEN:soft and non-tender EXTERNAL GENITALIA: Normal genitalia and Bartholins, Urethra, Sken'e normal CERVIX: smooth, no lesions. IUD strings visible. UTERUS: non-tender IMPRESSION/PLAN: IUD correctly positioned. Follow up for annual exam or sooner if needed. Considering metabolic surgery as it is covered by health insurance. Kayley Enriquez APRN.CNP [facility] 02-14-2023 Miscellaneous Notes TC to patient who verbalized understanding of providers message and has no questions at this time. DEAN Menendez Iron levels as expected are low. I am sending in an iron supplement to be taken once daily with a meal. Recheck blood counts in 2-4 weeks. Thank you Mirella Oconnell APRN.CNP documented in this encounter [facility] 02-10-2023 Miscellaneous Notes Probable cause of low iron. Will await iron results. Thank you Mirella Oconnell APRN.CNP Spoke with patient. Given message from provider's office. Patient verbalizes understanding. Patient states she had abnormally heavy periods the last two months and this months has been abnormally long. She had the Mirena placed mid December. SPOOL [employer]ULER is aware. Agnieszka Howe RN Left message for return call. Patients blood work still decreasing indicating probable iron deficiency. Does she have any abnormal bleeding? Heavy periods? I want to get iron levels on her to verify prior to starting any supplements. Thank you Mirella Oconnell APRN.GIOVANI documented in this encounter [facility] 02-07-2023 Note HNO ID: [id number] Author: Mirella Oconnell APRN.CNP Service: ? Author Type: Nurse Practitioner Type: Progress Notes Filed: 02/07/2023 2:47 PM Note Text: CC: Patient presents with: Recheck: Medication follow up HPI Francesca Kate is a 28 year old female who presents today for follow up on migraines since starting nurtec. Since starting nurtec every other day for preventative therapy, patient reports great improvement with migraines even with extra stress at work. Has only 1-2 slight headaches a week that have no other accompanying symptoms and resolve completely with tylenol or motrin. HTN: Ms. Kate indicates that she is feeling well and denies any symptoms referable to elevated blood pressure. Specifically denies headache, chest pain, palpitations, dyspnea, and peripheral edema. Currently not treated with medication. Previously on lisinopril She does not check BP's generally. Francesca denies regular aerobic exercise. She watches her diet for sodium, low fat and low cholesterol some of the time. Last 3 Encounter BP Readings: Date: BP: 02/07/2023 122/76 01/14/2023 124/70 12/27/2022 132/88 Concerned as she continues to gain weight. Has increased her caloric intake with work stress and not able to exercise as she is working all the time. REVIEW OF SYSTEMS General: no fevers, no chills, no night sweats, no recurrent infections, no change in appetite, no change in energy, and no significant changes in weight Respiratory: no cough, no wheezing, no shortness of breath, no hemoptysis Cardiovascular: no chest pain, no chest pressure, no palpitations, and no swelling Endocrine: no fatigue, no weight loss, no cold intolerance, no heat intolerance, no polyuria, no polyphagia, and no polydipsia Neurologic: No weakness, numbness, tingling, dizziness, memory loss, syncope. PAST MEDICAL HISTORY Diagnosis Date ADD (attention deficit disorder) Class 3 severe obesity with body mass index (BMI) of 50.0 to 59.9 in adult, unspecified obesity type, unspecified whether serious comorbidity present (HCC) Migraine headaches PAST SURGICAL HISTORY Procedure Laterality Date CORE DECOMPRESSION - HIP Left 06/30/2010 EGD INSERT INTRAUTERINE DEVICE 01/14/2023 LAPAROSCOPY SURG CHOLECYSTECTOMY 12/07/2014 ALLERGIES Baby Powder Pure Cornstarch [Harper Starch], Bee Venom Protein (Honey Bee), and Seasonal Allergies MEDICATIONS levonorgestrel (MIRENA) 21 mcg/24 hours (8 yrs) 52 mg IUD 1 Each by INTRAUTERINE route as directed. rimegepant (NURTEC ODT) 75 mg disintegrating tablet Take 1 tablet by mouth every other day. miSOPROStol (CYTOTEC) 200 mcg tablet Insert 2 tablets vaginally night prior to IUD and 2 tablets morning of procedure. Each dose should be in vagina for 6-8 hours. buPROPion XL (WELLBUTRIN XL) 300 mg 24 hr tablet Take 1 tablet by mouth once daily. ondansetron orally disintegrating (ZOFRAN ODT) 4 mg disintegrating tablet Take 1 tablet by mouth every 6 hours as needed for nausea/vomiting. rizatriptan ([facility] [employer] [facility] MAGISTRATE) 10 mg disintegrating tablet Take 1 tablet by mouth as needed. May repeat in 2 hours if needed. topiramate (TOPAMAX) 50 mg tablet Take 1 tablet by mouth twice daily. Blood Pressure Kit-Extra Large kit 1 Each once daily. FAMILY HISTORY Problem Relation Age of Onset Obesity Mother Alcohol/Drug Father Obesity Father Obesity Sister Obesity Sister No Known Problems Maternal Grandmother Alcohol/Drug Maternal Grandfather Cancer Maternal Grandfather Diabetes Maternal Grandfather Obesity Maternal Grandfather Obesity Paternal Grandmother Alcohol/Drug Paternal Grandfather Colon Cancer Paternal Grandfather Social History Tobacco Use Smoking status: Never Smokeless tobacco: Never Vaping Use Vaping Use: Never used Substance Use Topics Alcohol use: Yes Comment: rare Drug use: No PHYSICAL EXAM BP 122/76 Pulse 99 Resp 16 Wt (!) 162.8 kg (359 lb) LMP 01/01/2023 (Exact Date) SpO2 98% BMI 61.62 kg/m? General Appearance: well appearing, in no acute distress, alert Skin: Skin color, texture, turgor normal for age; Eyes: conjunctiva pink and moist, no icterus, sclera white, non-injected Lungs: Lungs clear to auscultation. No wheezing, rhonchi, rales. Heart: RRR without murmur, gallop, or rubs. No ectopy Health maintenance reviewed with patient: HEPATITIS C SCREENING Never done HIV SCREENING Never done HEPATITIS B(1 of 3 - 3-dose series) due on 08/31/2023 INFLUENZA(1) due on 02/28/2023 HPV VACCINE(3 - 3-dose series) due on 04/07/2023 ANNUAL PCP TEAM CHRONIC DISEASE VISIT due on 12/28/2023 BP CONTROLLED (<130/80) due on 01/15/2024 PAP TESTING due on 12/06/2025 DTAP,TDAP,TD(3 - Td or Tdap) due on 08/24/2032 DEPRESSION ASSESSMENT Completed COVID-19 VACCINE Completed DATA REVIEWED: No new labs ASSESSMENT/PLAN: 1. Other migraine without status migrainosus, not intractable - ICD9: 346.80, ICD10: G43.809 (primary diagnosis (more content not included)... [facility] 02-07-2023 History of Presen t illness Narrative CC: Patient presents with: Recheck: Medication follow up HPI Francesca Kate is a 28 year old female who presents today for follow up on migraines since starting nurtec. Since starting nurtec every other day for preventative therapy, patient reports great improvement with migraines even with extra stress at work. Has only 1-2 slight headaches a week that have no other accompanying symptoms and resolve completely with tylenol or motrin. HTN: Ms. Kate indicates that she is feeling well and denies any symptoms referable to elevated blood pressure. Specifically denies headache, chest pain, palpitations, dyspnea, and peripheral edema. Currently not treated with medication. Previously on lisinopril She does not check BP's generally. Francesca denies regular aerobic exercise. She watches her diet for sodium, low fat and low cholesterol some of the time. Last 3 Encounter BP Readings: Date: BP: 02/07/2023 122/76 01/14/2023 124/70 12/27/2022 132/88 Concerned as she continues to gain weight. Has increased her caloric intake with work stress and not able to exercise as she is working all the time. REVIEW OF SYSTEMS General: no fevers, no chills, no night sweats, no recurrent infections, no change in appetite, no change in energy, and no significant changes in weight Respiratory: no cough, no wheezing, no shortness of breath, no hemoptysis Cardiovascular: no chest pain, no chest pressure, no palpitations, and no swelling Endocrine: no fatigue, no weight loss, no cold intolerance, no heat intolerance, no polyuria, no polyphagia, and no polydipsia Neurologic: No weakness, numbness, tingling, dizziness, memory loss, syncope. PAST MEDICAL HISTORY Diagnosis Date ADD (attention deficit disorder) Class 3 severe obesity with body mass index (BMI) of 50.0 to 59.9 in adult, unspecified obesity type, unspecified whether serious comorbidity present (HCC) Migraine headaches PAST SURGICAL HISTORY Procedure Laterality Date CORE DECOMPRESSION - HIP Left 06/30/2010 EGD INSERT INTRAUTERINE DEVICE 01/14/2023 LAPAROSCOPY SURG CHOLECYSTECTOMY 12/07/2014 ALLERGIES Baby Powder Pure Cornstarch [Harper Starch], Bee Venom Protein (Honey Bee), and Seasonal Allergies MEDICATIONS levonorgestrel (MIRENA) 21 mcg/24 hours (8 yrs) 52 mg IUD 1 Each by INTRAUTERINE route as directed. rimegepant (NURTEC ODT) 75 mg disintegrating tablet Take 1 tablet by mouth every other day. miSOPROStol (CYTOTEC) 200 mcg tablet Insert 2 tablets vaginally night prior to IUD and 2 tablets morning of procedure. Each dose should be in vagina for 6-8 hours. buPROPion XL (WELLBUTRIN XL) 300 mg 24 hr tablet Take 1 tablet by mouth once daily. ondansetron orally disintegrating (ZOFRAN ODT) 4 mg disintegrating tablet Take 1 tablet by mouth every 6 hours as needed for nausea/vomiting. rizatriptan ([facility] [address] MAGISTRATE) 10 mg disintegrating tablet Take 1 tablet by mouth as needed. May repeat in 2 hours if needed. topiramate (TOPAMAX) 50 mg tablet Take 1 tablet by mouth twice daily. Blood Pressure Kit-Extra Large kit 1 Each once daily. FAMILY HISTORY Problem Relation Age of Onset Obesity Mother Alcohol/Drug Father Obesity Father Obesity Sister Obesity Sister No Known Problems Maternal Grandmother Alcohol/Drug Maternal Grandfather Cancer Maternal Grandfather Diabetes Maternal Grandfather Obesity Maternal Grandfather Obesity Paternal Grandmother Alcohol/Drug Paternal Grandfather Colon Cancer Paternal Grandfather Social History Tobacco Use Smoking status: Never Smokeless tobacco: Never Vaping Use Vaping Use: Never used Substance Use Topics Alcohol use: Yes Comment: rare Drug use: No PHYSICAL EXAM BP 122/76 Pulse 99 Resp 16 Wt (!) 162.8 kg (359 lb) LMP 01/01/2023 (Exact Date) SpO2 98% BMI 61.62 kg/m General Appearance: well appearing, in no acute distress, alert Skin: Skin color, texture, turgor normal for age; Eyes: conjunctiva pink and moist, no icterus, sclera white, non-injected Lungs: Lungs clear to auscultation. No wheezing, rhonchi, rales. Heart: RRR without murmur, gallop, or rubs. No ectopy Health maintenance reviewed with patient: HEPATITIS C SCREENING Never done HIV SCREENING Never done HEPATITIS B(1 of 3 - 3-dose series) due on 08/31/2023 INFLUENZA(1) due on 02/28/2023 HPV VACCINE(3 - 3-dose series) due on 04/07/2023 ANNUAL PCP TEAM CHRONIC DISEASE VISIT due on 12/28/2023 BP CONTROLLED (<130/80) due on 01/15/2024 PAP TESTING due on 12/06/2025 DTAP,TDAP,TD(3 - Td or Tdap) due on 08/24/2032 DEPRESSION ASSESSMENT Completed COVID-19 VACCINE Completed DATA REVIEWED: No new labs ASSESSMENT/PLAN: 1. Other migraine without status migrainosus, not intractable - ICD9: 346.80, ICD10: G43.809 (primary diagnosis) - much improvement with nurtec, will continue - follow up in 6 months 2. Essential hypertension - ICD9: 401.9, ICD10: I10 - Controlled - Recommend home blood pressure monitoring, to bring results to next visit - Encouraged sodium restriction, DASH or Mediterranean diet - Recommend regular aerobic exercise - CBC + DIFF - BASIC METABOLIC PNL 3. Class 3 severe obesity with serious comorbidity and body mass index (BMI) of 60.0 to 69.9 in adult, unspecified obesity type (HCC) - ICD9: 278.01, V85.44, ICD10: E66.01, Z68.44 Weight increasing - Behavioral intervention - if HgbA1c elevated will try patient on ozempic or other injectable. - TSH BLD - T4 FREE/FREE THYROX - HGB A1C Prescription instructions reviewed with patient as applicable. Potential red flag symptoms discussed with the patient. Reviewed appropriate action plan to take if red flag symptoms occur. Patient agreeable to treatment plan. Mirella Oconnell APRN.GIOVANI documented in this encounter [facility] 01-27-2023 Miscellaneous Notes Pt called in and reports [facility] doesn't have the Nurtec in stock at any of their stores. Let Pt know she can call other pharmacies and see if they have them in stock and call us back. documented in this encounter [facility] 01-14-2023 Note HNO ID: [id number] Author: Kayley Enriquez APRN.GIOVANI Service: ? Author Type: Nurse Practitioner Type: Progress Notes Filed: 01/14/2023 5:05 PM Note Text: Francesca presents today for IUD insertion for contraception. Patient's last menstrual period was 01/01/2023 (exact date). GC/chlamydia: Negative on 12/06/2022 test: negative Side effects including irregular bleeding were discussed with the patient. The patient understands that it should be removed in 8 years or sooner if the patient desires a . IUD source: office provided IUD lot #: [id number] Exp date: 03/29/2025 UNIVERSAL PROTOCOL / SAFETY CHECKLIST Procedure to be Performed: Mirena IUD Insertion Sign In: A Moment of CARE was completed. Personnel directly involved with the procedure wore the appropriate PPE (Personal Protective Equipment). Patient/Surrogate Stated/Verified: PATIENT VERIFIED(optional for EMERGENT procedures): Patient name, Date of , Relevant allergies, and The intended procedure Time Out Communication: Intended patient and procedure match the source documents. Consent documented and matches the intended procedure. Relevant labs, photos, and/or imaging studies have been reviewed. Implant(s) inserted: Correct implant(s) confirmed including size and side. and Expiration date(s) reviewed. Sign Out: SIGN OUT (optional for EMERGENT procedures): All instruments, equipment, possible retained foreign bodies accounted for. Post-procedure follow-up management communicated and Plan of Care Visit completed when applicable. The cervix was prepped with betadine. The uterus sounded to 7.5 cm and the uterus is Midposition.. Using sterile technique, the Mirena IUD was inserted without difficulty and the string was cut to 2.5 cm from the external os of the cervix. Patient tolerated procedure well. PLAN: Patient was advised to observe for signs and symptoms of infection including but not limited to fever, malodorous vaginal discharge and/or pain. The patient was told to check the string monthly for accurate placement. Bleeding expectations were reviewed. Follow up in one month. Kayley Enriquez APRN.[facility] 01-14-2023 Instructions Eliezer Plasencia Cma - 01/14/2023 3:18 PM EDT POST IUD INSTRUCTIONS You may have irregular bleeding during the first 3 months of use. You may have mild-severe cramping for the next 48 hours. You may use over the counter medication (Motrin, Tylenol) as needed. Your IUD must be removed or replaced based on the following table: IUD Type Removed or replaced within: Tiffany 3 years Kyleena 5 years Mirena 8 years Paragard 10 years Call my office for signs/symptoms of infection such as severe cramping, fever, or unusual bleeding. Check for string placement as instructed by your doctor. If you have any additional questions, please contact the office. documented in this encounter [facility] 01-14-2023 History of Presen t illness Narrative Francesca presents today for IUD insertion for contraception. Patient's last menstrual period was 01/01/2023 (exact date). GC/chlamydia: Negative on 12/06/2022 test: negative Side effects including irregular bleeding were discussed with the patient. The patient understands that it should be removed in 8 years or sooner if the patient desires a . IUD source: office provided IUD lot #: [id number] Exp date: 03/29/2025 UNIVERSAL PROTOCOL / SAFETY CHECKLIST Procedure to be Performed: Mirena IUD Insertion Sign In: A Moment of CARE was completed. Personnel directly involved with the procedure wore the appropriate PPE (Personal Protective Equipment). Patient/Surrogate Stated/Verified: PATIENT VERIFIED(optional for EMERGENT procedures): Patient name, Date of , Relevant allergies, and The intended procedure Time Out Communication: Intended patient and procedure match the source documents. Consent documented and matches the intended procedure. Relevant labs, photos, and/or imaging studies have been reviewed. Implant(s) inserted: Correct implant(s) confirmed including size and side. and Expiration date(s) reviewed. Sign Out: SIGN OUT (optional for EMERGENT procedures): All instruments, equipment, possible retained foreign bodies accounted for. Post-procedure follow-up management communicated and Plan of Care Visit completed when applicable. The cervix was prepped with betadine. The uterus sounded to 7.5 cm and the uterus is Midposition.. Using sterile technique, the Mirena IUD was inserted without difficulty and the string was cut to 2.5 cm from the external os of the cervix. Patient tolerated procedure well. PLAN: Patient was advised to observe for signs and symptoms of infection including but not limited to fever, malodorous vaginal discharge and/or pain. The patient was told to check the string monthly for accurate placement. Bleeding expectations were reviewed. Follow up in one month. Kayley Enriquez APRN.CNP documented in this encounter [facility] 12-27-2022 Note HNO ID: [id number] Author: Mirella Oconnell APRN.CNP Service: ? Author Type: Nurse Practitioner Type: Progress Notes Filed: 12/27/2022 5:50 PM Note Text: CC: Patient presents with: Recheck: 4 week migraine follow up HPI Francesca Kate is a 27 year old female who presents today for follow up on migraine. Topamax was increased 4 weeks ago but patient did not tolerate so decreased to 1.5 tabs which she is tolerating but migraines persisted. Started on nurtec but has not picked up from the pharmacy yet. Is going after this appointment to get it. Has had current migraine for 3 days. Pain is to left side of forehead above eye. Pain is a throbbing and accompanied with sensitivity to light and nausea which zofran is helpful at relieving. Has taken tylenol and rizatriptan but this is not helping. Denies any aura, vision changes, weakness, numbness, confusion, or any new symptoms. REVIEW OF SYSTEMS General: no fevers, no chills, no night sweats, no recurrent infections, no change in appetite, no change in energy, and no significant changes in weight Respiratory: no cough, no wheezing, no shortness of breath, no hemoptysis Cardiovascular: no chest pain, no chest pressure, no palpitations, and no swelling Neurologic: No weakness, numbness, tingling, dizziness, memory loss, syncope. PAST MEDICAL HISTORY Diagnosis Date ADD (attention deficit disorder) Class 3 severe obesity with body mass index (BMI) of 50.0 to 59.9 in adult, unspecified obesity type, unspecified whether serious comorbidity present (HCC) Migraine headaches PAST SURGICAL HISTORY Procedure Laterality Date CORE DECOMPRESSION - HIP Left 2010 EGD LAPAROSCOPY SURG CHOLECYSTECTOMY 12/07/14 ALLERGIES Baby Powder Pure Cornstarch [Harper Starch], Bee Venom Protein (Honey Bee), and Seasonal Allergies MEDICATIONS rimegepant (NURTEC ODT) 75 mg disintegrating tablet Take 1 tablet by mouth every other day. miSOPROStol (CYTOTEC) 200 mcg tablet Insert 2 tablets vaginally night prior to IUD and 2 tablets morning of procedure. Each dose should be in vagina for 6-8 hours. buPROPion XL (WELLBUTRIN XL) 300 mg 24 hr tablet Take 1 tablet by mouth once daily. ondansetron orally disintegrating (ZOFRAN ODT) 4 mg disintegrating tablet Take 1 tablet by mouth every 6 hours as needed for nausea/vomiting. rizatriptan ([employer] [employer] MAGISTRATE) 10 mg disintegrating tablet Take 1 tablet by mouth as needed. May repeat in 2 hours if needed. topiramate (TOPAMAX) 50 mg tablet Take 1 tablet by mouth twice daily. Blood Pressure Kit-Extra Large kit 1 Each once daily. FAMILY HISTORY Problem Relation Age of Onset Obesity Mother Alcohol/Drug Father Obesity Father Obesity Sister Obesity Sister No Known Problems Maternal Grandmother Alcohol/Drug Maternal Grandfather Cancer Maternal Grandfather Diabetes Maternal Grandfather Obesity Maternal Grandfather Obesity Paternal Grandmother Alcohol/Drug Paternal Grandfather Colon Cancer Paternal Grandfather Social History Tobacco Use Smoking status: Never Smokeless tobacco: Never Vaping Use Vaping Use: Never used Substance Use Topics Alcohol use: Yes Comment: rare Drug use: No PHYSICAL EXAM BP 132/88 Pulse 80 Resp 16 Wt (!) 162.8 kg (359 lb) LMP 11/28/2022 BMI 61.62 kg/m? General Appearance: well appearing, in no acute distress, alert Skin: Skin color, texture, turgor normal for age; Eyes: PERRLA, EOM's intact, conjunctiva pink and moist, no icterus, sclera white, non-injected Lungs: Lungs clear to auscultation. No wheezing, rhonchi, rales. Heart: RRR without murmur, gallop, or rubs. No ectopy Neurological: Gait normal. Reflexes normal and symmetric. Sensation intact., speech normal, mental status intact, muscle tone normal, muscle strength normal Health maintenance reviewed with patient: HEPATITIS C SCREENING Never done HIV SCREENING Never done BP CONTROLLED (<130/80) due on 10/25/2022 HEPATITIS B(1 of 3 - 3-dose series) due on 08/31/2023 INFLUENZA(Season Ended) due on 02/28/2023 ANNUAL PCP TEAM CHRONIC DISEASE VISIT due on 11/30/2023 PAP TESTING due on 12/06/2025 DTAP,TDAP,TD(3 - Td or Tdap) due on 08/24/2032 DEPRESSION ASSESSMENT Completed COVID-19 VACCINE Completed DATA REVIEWED: No new labs ASSESSMENT/PLAN: 1. Intractable migraine without aura and with status migrainosus - ICD9: 346.13, ICD10: G43.011 - start nurtec as ordered, - discussed going home and laying down to relieve migraine. - KETOROLAC 30 MG/ML (1 ML) INJECTION SOLUTION No red flag symptoms or exam findings. Neuro exam benign - Reviewed headache treatment, prevention and when to seek emergency care; see patient instructions - Follow-up in 6 weeks or earlier if needed. Prescription instructions reviewed with patient as applicable. Potential red flag symptoms discussed with the patient. Reviewed appropriate action plan to take if red flag symptoms occur. Patient agreeable (more content not included)... [facility] 12-27-2022 History of Presen t illness Narrative CC: Patient presents with: Recheck: 4 week migraine follow up HPI Francesca Kate is a 27 year old female who presents today for follow up on migraine. Topamax was increased 4 weeks ago but patient did not tolerate so decreased to 1.5 tabs which she is tolerating but migraines persisted. Started on nurtec but has not picked up from the pharmacy yet. Is going after this appointment to get it. Has had current migraine for 3 days. Pain is to left side of forehead above eye. Pain is a throbbing and accompanied with sensitivity to light and nausea which zofran is helpful at relieving. Has taken tylenol and rizatriptan but this is not helping. Denies any aura, vision changes, weakness, numbness, confusion, or any new symptoms. REVIEW OF SYSTEMS General: no fevers, no chills, no night sweats, no recurrent infections, no change in appetite, no change in energy, and no significant changes in weight Respiratory: no cough, no wheezing, no shortness of breath, no hemoptysis Cardiovascular: no chest pain, no chest pressure, no palpitations, and no swelling Neurologic: No weakness, numbness, tingling, dizziness, memory loss, syncope. PAST MEDICAL HISTORY Diagnosis Date ADD (attention deficit disorder) Class 3 severe obesity with body mass index (BMI) of 50.0 to 59.9 in adult, unspecified obesity type, unspecified whether serious comorbidity present (HCC) Migraine headaches PAST SURGICAL HISTORY Procedure Laterality Date CORE DECOMPRESSION - HIP Left 2010 EGD LAPAROSCOPY SURG CHOLECYSTECTOMY 12/07/14 ALLERGIES Baby Powder Pure Cornstarch [Harper Starch], Bee Venom Protein (Honey Bee), and Seasonal Allergies MEDICATIONS rimegepant (NURTEC ODT) 75 mg disintegrating tablet Take 1 tablet by mouth every other day. miSOPROStol (CYTOTEC) 200 mcg tablet Insert 2 tablets vaginally night prior to IUD and 2 tablets morning of procedure. Each dose should be in vagina for 6-8 hours. buPROPion XL (WELLBUTRIN XL) 300 mg 24 hr tablet Take 1 tablet by mouth once daily. ondansetron orally disintegrating (ZOFRAN ODT) 4 mg disintegrating tablet Take 1 tablet by mouth every 6 hours as needed for nausea/vomiting. rizatriptan ([address] MAGISTRATE) 10 mg disintegrating tablet Take 1 tablet by mouth as needed. May repeat in 2 hours if needed. topiramate (TOPAMAX) 50 mg tablet Take 1 tablet by mouth twice daily. Blood Pressure Kit-Extra Large kit 1 Each once daily. FAMILY HISTORY Problem Relation Age of Onset Obesity Mother Alcohol/Drug Father Obesity Father Obesity Sister Obesity Sister No Known Problems Maternal Grandmother Alcohol/Drug Maternal Grandfather Cancer Maternal Grandfather Diabetes Maternal Grandfather Obesity Maternal Grandfather Obesity Paternal Grandmother Alcohol/Drug Paternal Grandfather Colon Cancer Paternal Grandfather Social History Tobacco Use Smoking status: Never Smokeless tobacco: Never Vaping Use Vaping Use: Never used Substance Use Topics Alcohol use: Yes Comment: rare Drug use: No PHYSICAL EXAM BP 132/88 Pulse 80 Resp 16 Wt (!) 162.8 kg (359 lb) LMP 11/28/2022 BMI 61.62 kg/m General Appearance: well appearing, in no acute distress, alert Skin: Skin color, texture, turgor normal for age; Eyes: PERRLA, EOM's intact, conjunctiva pink and moist, no icterus, sclera white, non-injected Lungs: Lungs clear to auscultation. No wheezing, rhonchi, rales. Heart: RRR without murmur, gallop, or rubs. No ectopy Neurological: Gait normal. Reflexes normal and symmetric. Sensation intact., speech normal, mental status intact, muscle tone normal, muscle strength normal Health maintenance reviewed with patient: HEPATITIS C SCREENING Never done HIV SCREENING Never done BP CONTROLLED (<130/80) due on 10/25/2022 HEPATITIS B(1 of 3 - 3-dose series) due on 08/31/2023 INFLUENZA(Season Ended) due on 02/28/2023 ANNUAL PCP TEAM CHRONIC DISEASE VISIT due on 11/30/2023 PAP TESTING due on 12/06/2025 DTAP,TDAP,TD(3 - Td or Tdap) due on 08/24/2032 DEPRESSION ASSESSMENT Completed COVID-19 VACCINE Completed DATA REVIEWED: No new labs ASSESSMENT/PLAN: 1. Intractable migraine without aura and with status migrainosus - ICD9: 346.13, ICD10: G43.011 - start nurtec as ordered, - discussed going home and laying down to relieve migraine. - KETOROLAC 30 MG/ML (1 ML) INJECTION SOLUTION No red flag symptoms or exam findings. Neuro exam benign - Reviewed headache treatment, prevention and when to seek emergency care; see patient instructions - Follow-up in 6 weeks or earlier if needed. Prescription instructions reviewed with patient as applicable. Potential red flag symptoms discussed with the patient. Reviewed appropriate action plan to take if red flag symptoms occur. Patient agreeable to treatment plan. Mirella Oconnell APRN.CNP documented in this encounter [facility] 12-06-2022 Note HNO ID: [id number] Author: Kayley Enriquez APRN.CNP Service: ? Author Type: Nurse Practitioner Type: Progress Notes Filed: 12/06/2022 4:35 PM Note Text: Med Aide offered: Patient declines. Ma is a 27 year old who presents for an annual gynecologic exam without complaints. Menses: cycles every 28-30 days and 3-5 days of flow. Contraception: condoms interested in IUD HPV vaccine: Yes, has had 1st in series Last Pap: never HPV: never History of abnormal pap: Never Last mammogram: never Sexually active: Yes History of STDS: None Patient concerns for STD exposure: No. 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 History Comments: Sexual Activity: Not Asked; No partner data on record Contraception: No contraception data on record PAST MEDICAL HISTORY Diagnosis Date ADD (attention deficit disorder) Class 3 severe obesity with body mass index (BMI) of 50.0 to 59.9 in adult, unspecified obesity type, unspecified whether serious comorbidity present (HCC) Migraine headaches PAST SURGICAL HISTORY Procedure Laterality Date CORE DECOMPRESSION - HIP Left 2010 EGD LAPAROSCOPY SURG CHOLECYSTECTOMY 12/07/14 FAMILY HISTORY Problem Relation Age of Onset Obesity Mother Alcohol/Drug Father Obesity Father Obesity Sister Obesity Sister No Known Problems Maternal Grandmother Alcohol/Drug Maternal Grandfather Cancer Maternal Grandfather Diabetes Maternal Grandfather Obesity Maternal Grandfather Obesity Paternal Grandmother Alcohol/Drug Paternal Grandfather Colon Cancer Paternal Grandfather SOCIAL HISTORY Social History Tobacco Use Smoking status: Never Smokeless tobacco: Never Substance Use Topics Alcohol use: No Drug use: No REVIEW OF SYSTEMS Abdomen: No abdominal pain, nausea, vomiting, diarrhea, or constipation. No bloating, early satiety, indigestion, or increased flatulence. Bladder: No dysuria, gross hematuria, urinary frequency, urinary urgency, or incontinence. Breast: No breast lumps, nipple d/c, overlying skin changes, redness or skin retraction. Allergies and current medication updated:Yes EXAM: BP 126/82 Ht 5' 4 (1.63m) Wt 349 lb (158.3kg) LMP 11/28/2022 BMI 59.88 kg/(m2). GENERAL: pleasant, female in no apparent distress HEENT: Normocephalic, atraumatic, mucus membranes moist, and no lesions NECK: Supple, full range of motion, no adenopathy, and thyroid normal DERMATOLOGY: Normal, without lesions, non-icteric, and non-hirsute BREAST: soft, non-tender, symmetric, no dominant mass, normal nipple-areolar complex, no lymphadenopathy, and no nipple discharge CHEST: Normal inspiratory effort ABDOMEN: soft, non-tender, and difficult to assess due to body habitus PELVIC: external genitalia normal, normal Bartholin's glands, urethra, [place]'s glands, no vulvar lesions, no cervical lesions, good vaginal support, physiologic discharge present, normal appearing perineal body and perianal region BIMANUAL: no adnexal masses, non-tender, and difficult to palpate due to body habitus RECTOVAGINAL: deferred. NEURO: alert and oriented x3,exam grossly non-focal EXTREMITIES: normal ASSESSMENT/PLAN: 1) Health maintenance: Pap done with reflex HPV. Nutrition, exercise and routine health maintenance exams reviewed. HPV vaccine: 2nd in series given today 2. Screen for STD (sexually transmitted disease) - ICD9: V74.5, ICD10: Z11.3 Declined blood testing. - GC/CHLAMYDIA DNA DET 3. Need for prophylactic vaccination/inoculation against viral disease - ICD9: V04.89, ICD10: Z23 - THER/PROPH/DIAG INJ, SC/IM - HPV VACCINE, 9-VALENT (GARDASIL 9) - HPV VACCINE, 9-VALENT (GARDASIL 9) 4. General counseling and advice for contraceptive management - ICD9: V25.09, ICD10: Z30.09 Interested in IUD. Discussed IUDs ParaGard, Kyleena, Mirena with R/B/A. She would like to proceed with Mirena IUD insertion. Procedure discussed and use of misoprostol, either vaginal or oral, discussed. - INSERT INTRAUTERINE DEVICE - MISOPROSTOL 200 MCG TABLET Schedule when on menses Ibuprofen 600-800 prior to appointment Vaginal cytotec Eat before appointment. 5. Class 3 severe obesity with body mass index (BMI) of 50.0 to 59.9 in adult, unspecified obesity type, unspecified whether serious comorbidity present (HCC) - ICD9: 278.01, V85.43, ICD10: E66.01, Z68.43 -Strong family history of obesity. She has lost 20 pounds in the past but has regained. Weight loss options discussed and she is interested in metabolic surgery. - [facility] 6) Follow up one year or sooner as needed Kayley Enriquez APRN.GIOVANI Patient identified by name and date (more content not included)... [facility] 11-29-2022 Note HNO ID: [id number] Author: Mirella Oconnell APRN.GIOVANI Service: ? Author Type: Nurse Practitioner Type: Progress Notes Filed: 11/29/2022 1:50 PM Note Text: CC: Patient presents with: Yearly Exam: Annual visit HPI Francesca Kate is a 27 year old female who presents today for annual physical exam. Exercise: works out regularly 5 times per week with walking. Diet: Watches diet for salt (salty snacks, added salt, processed frozen/canned foods), sugary/sweet snacks, unhealthy fats: Yes Caffeine: less than 1 a day as it causes migraines Water intake: 80 ounces a day on average. HTN: Ms. Kate indicates that she is feeling well and denies any symptoms referable to elevated blood pressure. Specifically denies headache, chest pain, palpitations, dyspnea, and peripheral edema. Patient denies any side effects of her medication(s) and is compliant with their regimen. She does check BP's away from this office with average BP's in the 120s-130/70s-80 range. Last 3 Encounter BP Readings: Date: BP: 11/29/2022 123/79 08/30/2022 141/82[BP Jose Luis[ 01/03/2022 122/74 Migraines have been increasing over the last month. Having 2-3 a week and one that lasted 5 days. Denies any chagne in diet, meds, activities, supplements, drinks, sinus congestion, sinus drainage, weakness, confusion. Prior to migraine her left arm will go numb or starts with a burning under her eye. Does not have numbness outside of the migraine. Pain is typically at right eye and/or right samaritan. Pain is described as a varying type of ache, throbbing, but will get sharp pains with movement. Does have light sensitivity, nausea, weakness, sound sensitivity, and off balance. Denies vomiting, tingling, recent illnesses, vision changes. Saw optometry a few weeks ago without any real concern. Maxalt is usually helpful in stopping migraines but not 100% of the time. Just started her menstrual cycle and uses protection with any sexual intercourse. On wellbutrin for ADHD and well controlled on current treatment. Sleep: is described as normal Alcohol use: does not drink any alcohol Drug use: No Appetite: good Stresses: Denies any major stressor. Suicidal Thoughts: No suicidal ideation, intent or plan Support: Comes from multiple sources including family REVIEW OF SYSTEMS General: no fevers, no chills, no night sweats, no recurrent infections, no change in appetite, no change in energy, and no significant changes in weight Respiratory: no cough, no wheezing, no shortness of breath, no hemoptysis Cardiovascular: no chest pain, no chest pressure, no palpitations, and no swelling GI: No nausea, vomiting, or diarrhea : No history of dysuria, frequency or incontinence Musculoskeletal: Negative for joint pain or swelling, back pain or muscle pain Skin: Negative for lesions, rash, and itching Psych: PHQ2 is 0 Hematologic/Lymph: Negative for prolonged bleeding, bruising easily or swollen nodes Endocrine: no fatigue, no cold intolerance, no heat intolerance, no polyuria, no polyphagia, and no polydipsia Neurologic: No weakness, numbness, tingling, dizziness, memory loss, syncope. PAST MEDICAL HISTORY Diagnosis Date Migraine headaches Morbid obesity (HCC) PAST SURGICAL HISTORY Procedure Laterality Date CORE DECOMPRESSION - HIP Left 2010 EGD LAPAROSCOPY SURG CHOLECYSTECTOMY 12/07/14 ALLERGIES Baby Powder Pure Cornstarch [Harper Starch], Bee Venom Protein (Honey Bee), and Seasonal Allergies MEDICATIONS buPROPion XL (WELLBUTRIN XL) 300 mg 24 hr tablet Take 1 tablet by mouth once daily. ondansetron orally disintegrating (ZOFRAN ODT) 4 mg disintegrating tablet Take 1 tablet by mouth every 6 hours as needed for nausea/vomiting. rizatriptan ([address] [address] MAGISTRATE) 10 mg disintegrating tablet Take 1 tablet by mouth as needed. May repeat in 2 hours if needed. topiramate (TOPAMAX) 50 mg tablet Take 1 tablet by mouth twice daily. Blood Pressure Kit-Extra Large kit 1 Each once daily. lisinopril (ZESTRIL, PRINIVIL) 10 mg tablet Take 1 tablet by mouth once daily. FAMILY HISTORY Problem Relation Age of Onset Alcohol/Drug Maternal Grandfather Alcohol/Drug Paternal Grandfather Alcohol/Drug Father Cancer Maternal Grandfather Colon Cancer Paternal Grandfather Diabetes Maternal Grandfather Social History Tobacco Use Smoking status: Never Smokeless tobacco: Never Substance Use Topics Alcohol use: No Drug use: No PHYSICAL EXAM BP 123/79 Pulse 84 Temp 36.9 ?C (98.4 ?F) (Temporal) Resp 16 Wt (!) 160.6 kg (354 lb) LMP 04/26/2021 SpO2 99% BMI 62.72 kg/m? General Appearance: well appearing, in no acute distress, alert Pysch: mood and affect broad and appropriate Skin: Skin color, texture, turgor normal for age; Eyes: PERRLA, EOMs intact, conjunctiva pink and moist, no icterus, sclera white, non-injected Neck: Thyroid normal size and symmetric without palpable nodules, Neck supple, No adenopath (more content not included)... [facility] 11-29-2022 History of Presen t illness Narrative CC: Patient presents with: Yearly Exam: Annual visit HPI Francesca Kate is a 27 year old female who presents today for annual physical exam. Exercise: works out regularly 5 times per week with walking. Diet: Watches diet for salt (salty snacks, added salt, processed frozen/canned foods), sugary/sweet snacks, unhealthy fats: Yes Caffeine: less than 1 a day as it causes migraines Water intake: 80 ounces a day on average. HTN: Ms. Kate indicates that she is feeling well and denies any symptoms referable to elevated blood pressure. Specifically denies headache, chest pain, palpitations, dyspnea, and peripheral edema. Patient denies any side effects of her medication(s) and is compliant with their regimen. She does check BP's away from this office with average BP's in the 120s-130/70s-80 range. Last 3 Encounter BP Readings: Date: BP: 11/29/2022 123/79 08/30/2022 141/82[BP Jose Luis[ 01/03/2022 122/74 Migraines have been increasing over the last month. Having 2-3 a week and one that lasted 5 days. Denies any chagne in diet, meds, activities, supplements, drinks, sinus congestion, sinus drainage, weakness, confusion. Prior to migraine her left arm will go numb or starts with a burning under her eye. Does not have numbness outside of the migraine. Pain is typically at right eye and/or right samaritan. Pain is described as a varying type of ache, throbbing, but will get sharp pains with movement. Does have light sensitivity, nausea, weakness, sound sensitivity, and off balance. Denies vomiting, tingling, recent illnesses, vision changes. Saw optometry a few weeks ago without any real concern. Maxalt is usually helpful in stopping migraines but not 100% of the time. Just started her menstrual cycle and uses protection with any sexual intercourse. On wellbutrin for ADHD and well controlled on current treatment. Sleep: is described as normal Alcohol use: does not drink any alcohol Drug use: No Appetite: good Stresses: Denies any major stressor. Suicidal Thoughts: No suicidal ideation, intent or plan Support: Comes from multiple sources including family REVIEW OF SYSTEMS General: no fevers, no chills, no night sweats, no recurrent infections, no change in appetite, no change in energy, and no significant changes in weight Respiratory: no cough, no wheezing, no shortness of breath, no hemoptysis Cardiovascular: no chest pain, no chest pressure, no palpitations, and no swelling GI: No nausea, vomiting, or diarrhea : No history of dysuria, frequency or incontinence Musculoskeletal: Negative for joint pain or swelling, back pain or muscle pain Skin: Negative for lesions, rash, and itching Psych: PHQ2 is 0 Hematologic/Lymph: Negative for prolonged bleeding, bruising easily or swollen nodes Endocrine: no fatigue, no cold intolerance, no heat intolerance, no polyuria, no polyphagia, and no polydipsia Neurologic: No weakness, numbness, tingling, dizziness, memory loss, syncope. PAST MEDICAL HISTORY Diagnosis Date Migraine headaches Morbid obesity (HCC) PAST SURGICAL HISTORY Procedure Laterality Date CORE DECOMPRESSION - HIP Left 2010 EGD LAPAROSCOPY SURG CHOLECYSTECTOMY 12/07/14 ALLERGIES Baby Powder Pure Cornstarch [Harper Starch], Bee Venom Protein (Honey Bee), and Seasonal Allergies MEDICATIONS buPROPion XL (WELLBUTRIN XL) 300 mg 24 hr tablet Take 1 tablet by mouth once daily. ondansetron orally disintegrating (ZOFRAN ODT) 4 mg disintegrating tablet Take 1 tablet by mouth every 6 hours as needed for nausea/vomiting. rizatriptan ([facility] MAGISTRATE) 10 mg disintegrating tablet Take 1 tablet by mouth as needed. May repeat in 2 hours if needed. topiramate (TOPAMAX) 50 mg tablet Take 1 tablet by mouth twice daily. Blood Pressure Kit-Extra Large kit 1 Each once daily. lisinopril (ZESTRIL, PRINIVIL) 10 mg tablet Take 1 tablet by mouth once daily. FAMILY HISTORY Problem Relation Age of Onset Alcohol/Drug Maternal Grandfather Alcohol/Drug Paternal Grandfather Alcohol/Drug Father Cancer Maternal Grandfather Colon Cancer Paternal Grandfather Diabetes Maternal Grandfather Social History Tobacco Use Smoking status: Never Smokeless tobacco: Never Substance Use Topics Alcohol use: No Drug use: No PHYSICAL EXAM BP 123/79 Pulse 84 Temp 36.9 C (98.4 F) (Temporal) Resp 16 Wt (!) 160.6 kg (354 lb) LMP 04/26/2021 SpO2 99% BMI 62.72 kg/m General Appearance: well appearing, in no acute distress, alert Pysch: mood and affect broad and appropriate Skin: Skin color, texture, turgor normal for age; Eyes: PERRLA, EOMs intact, conjunctiva pink and moist, no icterus, sclera white, non-injected Neck: Thyroid normal size and symmetric without palpable nodules, Neck supple, No adenopathy Lymph nodes: No cervical lymphadenopathy and No supraclavicular lymphadenopathy Lungs: Lungs clear to auscultation. No wheezing, rhonchi, rales. Heart: RRR without murmur, gallop, or rubs. No ectopy Abdomen: Abdomen soft, non-tender. Bowel sounds normal. No masses, organomegaly Extremities: No deformities, edema, skin discoloration, clubbing or cyanosis. Good capillary refill. Neurological: Gait normal. Reflexes normal and symmetric. Sensation grossly intact., speech normal, mental status intact, muscle tone normal, muscle strength normal HEPATITIS C SCREENING Never done HIV SCREENING Never done DTAP,TDAP,TD(1 - Tdap) Never done PAP TESTING Never done BP CONTROLLED (<130/80) due on 10/25/2022 HEPATITIS B(1 of 3 - 3-dose series) due on 08/31/2023 INFLUENZA(Season Ended) due on 02/28/2023 ANNUAL PCP TEAM CHRONIC DISEASE VISIT due on 08/31/2023 DEPRESSION ASSESSMENT Completed COVID-19 VACCINE Completed ASSESSMENT/PLAN: 1. Annual physical exam - ICD9: V70.0, ICD10: Z00.00 (primary diagnosis) - Counseled on healthy diet and regular exercise - Calcium intake with supplements or by diet of 1000 mg/day for under 50, 2227-4729 mg/day for 50+ - Discussed need and benefit for weight loss. BMI 62.72 kg/(m^2) - Depression screening tool completed and reviewed with patient. Based on score and interview, patient is not at risk for depression and recommended no further intervention at this time. - Follow up for annual exam in one year 2. Migraine without status migrainosus, not intractable, unspecified migraine type - ICD9: 346.90, ICD10: G43.909 - no red flag symptoms on exam - uncontrolled at this time - increasing topamax, if ineffective will consider nurtec - ONDANSETRON 4 MG DISINTEGRATING TABLET - follow up in 4 weeks - go to ER for severe/sudden headache, weakness, numbness, confusion, or any other urgent concerns. 3. Adult ADHD - ICD9: 314.01, ICD10: F90.9 Controlled with current treatment - continue wellbutrin 4. Essential hypertension - ICD9: 401.9, ICD10: I10 - Controlled even after stopping the lisinopril - Recommend home blood pressure monitoring, to bring results to next visit - Encouraged sodium restriction, DASH or Mediterranean diet - Recommend regular aerobic exercise 5. Morbid obesity (HCC) - ICD9: 278.01, ICD10: E66.01 Weight increasing - discussed importance of healthy diet and exercise - if MARTINEZ controlled at next visit can discuss any other possible options Prescription instructions reviewed with patient as applicable. Potential red flag symptoms discussed with the patient. Reviewed appropriate action plan to take if red flag symptoms occur. Patient agreeable to treatment plan. Mirella Oconnell APRN.CNP documented in this encounter [facility] 11-28-2022 Miscellaneous Notes Patient has been identified by name and date of : Yes, Provider Dr. Adhikari Date 11/28/22 Time 9:21 am Pharmacy phones for refill(s): Requested Prescriptions Pending Prescriptions Disp Refills rizatriptan ([facility] MAGISTRATE) 10 mg disintegrating tablet [Pharmacy Med Name: RIZATRIPTAN 10 MG ODT] 4 tablet Sig: dissolve 1 tablet by mouth once daily if needed MAY REPEAT ONCE in 2 hours if needed not more than 2 doses in 1 day or 4 doses in 1 week Date of last office visit in primary care: 08/30/22 next apt 11/29/22 Last 2 Encounter Wt Readings: Date: Wt: 08/30/2022 158.3 kg (349 lb) 01/03/2022 158.8 kg (350 lb) Previous labs/tests for medication: Not applicable Thank you. Rita Foley LPN documented in this encounter [facility] 08-30-2022 Note HNO ID: [id number] Author: Mirella Oconnell APRN.CNP Service: ? Author Type: Nurse Practitioner Type: Progress Notes Filed: 09/11/2022 2:45 PM Note Text: CC: Patient presents with: Recheck: Medication follow up HPI Francesca Kate is a 27 year old female who presents today for routine follow up. Migraines: Controlled well with topamax. Gets an average of 1 time a month that is usually stopped by maxalt, but if too late in taking it is resolved with tylenol ibuprofen and benadryl. Has noticed she is getting the floaty spots and pressure behind the eye letting her know she is going to have a migraine. Migraine is accompanied with nausea, light sensitivity, sound sensitivity, and some dizziness. Denies numbness, tingling, weakness, or confusion. HTN: Ms. Kate indicates that she is feeling well and denies any symptoms referable to elevated blood pressure. Specifically denies headache, chest pain, palpitations, dyspnea, and peripheral edema. Stopped lisinopril a month ago as she didn't like how it made her feel but unable to describe what the feelings were. She does not check BP's generally. Francesca denies regular aerobic exercise. She watches her diet for sodium, low fat and low cholesterol most of the time. Last 3 Encounter BP Readings: Date: BP: 08/30/2022 144/90 01/03/2022 122/74 11/22/2021 132/78 ADHD: controlled well with current wellbutrin dose. Able to concentrate well throughout the day Alcohol use: does not drink any alcohol Drug use: No Appetite: good Stresses: Denies any major stressor. Suicidal Thoughts: No suicidal ideation, intent or plan REVIEW OF SYSTEMS General: no fevers, no chills, no night sweats, no recurrent infections, no change in appetite, no change in energy, and no significant changes in weight Respiratory: no cough, no wheezing, no shortness of breath, no hemoptysis Cardiovascular: no chest pain, no chest pressure, no palpitations, and no swelling GI: No nausea, vomiting, or diarrhea Neurologic: No headache, weakness, numbness, tingling, dizziness, memory loss, syncope. PHQ2 is 0 PAST MEDICAL HISTORY Diagnosis Date Migraine headaches Morbid obesity (HCC) PAST SURGICAL HISTORY Procedure Laterality Date CORE DECOMPRESSION - HIP Left 2010 EGD LAPAROSCOPY SURG CHOLECYSTECTOMY 12/07/14 ALLERGIES Baby Powder Pure Cornstarch [Harper Starch], Bee Venom Protein (Honey Bee), and Seasonal Allergies MEDICATIONS topiramate (TOPAMAX) 50 mg tablet Take 1 tablet by mouth once daily. Take with 25mg dose to equal a total of 75mg. topiramate (TOPAMAX) 25 mg tablet Take 1 tablet with 50mg to equal a 75mg dose rizatriptan ([facility] MAGISTRATE) 10 mg disintegrating tablet Take 1 tablet by mouth as needed. May repeat in 2 hours if needed, not more than 2 in a day and 4 in a week ondansetron orally disintegrating (ZOFRAN ODT) 4 mg disintegrating tablet Take 1 tablet by mouth every 6 hours as needed for nausea/vomiting. Blood Pressure Kit-Extra Large kit 1 Each once daily. buPROPion XL (WELLBUTRIN XL) 300 mg 24 hr tablet Take 1 tablet by mouth once daily. lisinopril (ZESTRIL, PRINIVIL) 10 mg tablet Take 1 tablet by mouth once daily. FAMILY HISTORY Problem Relation Age of Onset Alcohol/Drug Maternal Grandfather Alcohol/Drug Paternal Grandfather Alcohol/Drug Father Cancer Maternal Grandfather Colon Cancer Paternal Grandfather Diabetes Maternal Grandfather Social History Tobacco Use Smoking status: Never Smokeless tobacco: Never Substance Use Topics Alcohol use: No Drug use: No PHYSICAL EXAM BP 141/82 Pulse 76 Resp 16 Wt (!) 158.3 kg (349 lb) LMP 04/26/2021 BMI 61.84 kg/m? General Appearance: well appearing, in no acute distress, alert Skin: Skin color, texture, turgor normal for age; Neck: Thyroid normal size and symmetric without palpable nodules, Neck supple, No adenopathy Lymph nodes: No cervical lymphadenopathy and No supraclavicular lymphadenopathy Lungs: Lungs clear to auscultation. No wheezing, rhonchi, rales. Heart: RRR without murmur, gallop, or rubs. No ectopy Health maintenance reviewed with patient: HEPATITIS B(1 of 3 - 3-dose series) Never done DEPRESSION ASSESSMENT Never done DTAP,TDAP,TD(1 - Tdap) due on 10/25/2022 PAP TESTING due on 10/25/2022 HEPATITIS C SCREENING due on 10/25/2022 HIV SCREENING due on 10/25/2022 COVID-19 VACCINE(2 - Booster for Lidia series) due on 10/25/2022 INFLUENZA(1) due on 12/27/2022 BP CONTROLLED (<130/80) due on 01/03/2023 ANNUAL PCP TEAM CHRONIC DISEASE VISIT due on 01/24/2023 DATA REVIEWED: No new labs ASSESSMENT/PLAN: 1. Essential hypertension - ICD9: 401.9, ICD10: I10 (primary diagnosis) - suboptimal control - patient wanting to exercise and attempt more weight loss to naturally lower her blood pressure - Encouraged dietary sodium restriction/DASH diet - Recommended regular aerobic exercise. - Recommend home blood pressure monitoring, to brin (more content not included)... [facility] 08-30-2022 History of Presen t illness Narrative CC: Patient presents with: Recheck: Medication follow up HPI Francesca Kate is a 27 year old female who presents today for routine follow up. Migraines: Controlled well with topamax. Gets an average of 1 time a month that is usually stopped by maxalt, but if too late in taking it is resolved with tylenol ibuprofen and benadryl. Has noticed she is getting the floaty spots and pressure behind the eye letting her know she is going to have a migraine. Migraine is accompanied with nausea, light sensitivity, sound sensitivity, and some dizziness. Denies numbness, tingling, weakness, or confusion. HTN: Ms. Kate indicates that she is feeling well and denies any symptoms referable to elevated blood pressure. Specifically denies headache, chest pain, palpitations, dyspnea, and peripheral edema. Stopped lisinopril a month ago as she didn't like how it made her feel but unable to describe what the feelings were. She does not check BP's generally. Francesca denies regular aerobic exercise. She watches her diet for sodium, low fat and low cholesterol most of the time. Last 3 Encounter BP Readings: Date: BP: 08/30/2022 144/90 01/03/2022 122/74 11/22/2021 132/78 ADHD: controlled well with current wellbutrin dose. Able to concentrate well throughout the day Alcohol use: does not drink any alcohol Drug use: No Appetite: good Stresses: Denies any major stressor. Suicidal Thoughts: No suicidal ideation, intent or plan REVIEW OF SYSTEMS General: no fevers, no chills, no night sweats, no recurrent infections, no change in appetite, no change in energy, and no significant changes in weight Respiratory: no cough, no wheezing, no shortness of breath, no hemoptysis Cardiovascular: no chest pain, no chest pressure, no palpitations, and no swelling GI: No nausea, vomiting, or diarrhea Neurologic: No headache, weakness, numbness, tingling, dizziness, memory loss, syncope. PHQ2 is 0 PAST MEDICAL HISTORY Diagnosis Date Migraine headaches Morbid obesity (HCC) PAST SURGICAL HISTORY Procedure Laterality Date CORE DECOMPRESSION - HIP Left 2010 EGD LAPAROSCOPY SURG CHOLECYSTECTOMY 12/07/14 ALLERGIES Baby Powder Pure Cornstarch [Harper Starch], Bee Venom Protein (Honey Bee), and Seasonal Allergies MEDICATIONS topiramate (TOPAMAX) 50 mg tablet Take 1 tablet by mouth once daily. Take with 25mg dose to equal a total of 75mg. topiramate (TOPAMAX) 25 mg tablet Take 1 tablet with 50mg to equal a 75mg dose rizatriptan ([facility] MAGISTRATE) 10 mg disintegrating tablet Take 1 tablet by mouth as needed. May repeat in 2 hours if needed, not more than 2 in a day and 4 in a week ondansetron orally disintegrating (ZOFRAN ODT) 4 mg disintegrating tablet Take 1 tablet by mouth every 6 hours as needed for nausea/vomiting. Blood Pressure Kit-Extra Large kit 1 Each once daily. buPROPion XL (WELLBUTRIN XL) 300 mg 24 hr tablet Take 1 tablet by mouth once daily. lisinopril (ZESTRIL, PRINIVIL) 10 mg tablet Take 1 tablet by mouth once daily. FAMILY HISTORY Problem Relation Age of Onset Alcohol/Drug Maternal Grandfather Alcohol/Drug Paternal Grandfather Alcohol/Drug Father Cancer Maternal Grandfather Colon Cancer Paternal Grandfather Diabetes Maternal Grandfather Social History Tobacco Use Smoking status: Never Smokeless tobacco: Never Substance Use Topics Alcohol use: No Drug use: No PHYSICAL EXAM BP 141/82 Pulse 76 Resp 16 Wt (!) 158.3 kg (349 lb) LMP 04/26/2021 BMI 61.84 kg/m General Appearance: well appearing, in no acute distress, alert Skin: Skin color, texture, turgor normal for age; Neck: Thyroid normal size and symmetric without palpable nodules, Neck supple, No adenopathy Lymph nodes: No cervical lymphadenopathy and No supraclavicular lymphadenopathy Lungs: Lungs clear to auscultation. No wheezing, rhonchi, rales. Heart: RRR without murmur, gallop, or rubs. No ectopy Health maintenance reviewed with patient: HEPATITIS B(1 of 3 - 3-dose series) Never done DEPRESSION ASSESSMENT Never done DTAP,TDAP,TD(1 - Tdap) due on 10/25/2022 PAP TESTING due on 10/25/2022 HEPATITIS C SCREENING due on 10/25/2022 HIV SCREENING due on 10/25/2022 COVID-19 VACCINE(2 - Booster for Lidia series) due on 10/25/2022 INFLUENZA(1) due on 12/27/2022 BP CONTROLLED (<130/80) due on 01/03/2023 ANNUAL PCP TEAM CHRONIC DISEASE VISIT due on 01/24/2023 DATA REVIEWED: No new labs ASSESSMENT/PLAN: 1. Essential hypertension - ICD9: 401.9, ICD10: I10 (primary diagnosis) - suboptimal control - patient wanting to exercise and attempt more weight loss to naturally lower her blood pressure - Encouraged dietary sodium restriction/DASH diet - Recommended regular aerobic exercise. - Recommend home blood pressure monitoring, to bring results in on next visit - BP kit ordered - Goal of BP <130/80 - follow up in 3 months 2. Migraine without status migrainosus, not intractable, unspecified migraine type - ICD9: 346.90, ICD10: G43.909 Controlled with current treatment - topamax refilled - ONDANSETRON 4 MG DISINTEGRATING TABLET - go to ER for sudden severe headaches, weakness, numbness, confusion, or any other urgent concerns. 3. Adult ADHD - ICD9: 314.01, ICD10: F90.9 - controlled with Wellbutrin. Will continue at this time. 4. Annual physical exam - ICD9: V70.0, ICD10: Z00.00 - not reviewed at this time. Labs ordered and annual exam scheduled - LIPID PANEL BASIC - CBC + DIFF - COMP METABOLIC PANEL Prescription instructions reviewed with patient as applicable. Potential red flag symptoms discussed with the patient. Reviewed appropriate action plan to take if red flag symptoms occur. Patient agreeable to treatment plan. Mirella Oconnell APRN.CNP documented in this encounter [facility] 05-21-2022 Miscellaneous Notes Patel with [facility] calls to clarify Wellbutrin XL 300 mg 24 hr tablet order. Order is for 1 tablet by mouth once daily. If tolerated, increase to 2 tablets once daily which exceeds the max daily dose of 450 mg. Please clarify. Looks like Sig box not changed when medication ordered previously. Deleted increase to 2 tablets if tolerated and pended with correct dosage of 300 mg daily. Elysia Altamirano RN documented in this encounter [facility] 01-24-2022 History of Presen t illness Narrative This Team Access Model visit is a virtual encounter. It required patient-provider interaction for the medical decision making as documented below. Patient agrees to the visit: Yes Patient Location: [place] CC: Patient presents with: Headache Behavioral Problem HPI Francesca Kate is a 27 year old female who is contacted today for a virtual visit. This is an established patient of Dr. Lili Adhikari MD. Patient is very excited she is about to start a new job, but will have a lapse in her insurance for 3 months. Migraines: Last visit topamax was increased to 75mg daily which has improved to having migraines 1-2 times a week and they are not as severe and able to be managed with tylenol and ibuprofen which she is very pleased with. Denies vision changes, weakness, numbness, dizziness, or syncope. ADHD: Wellbutrin was increased at last visit. Fees like she is focusing better and that she is in a sweet spot . Denies any insomnia, increased anxiety, nausea, or vomiting. REVIEW OF SYSTEMS General: no fevers, no chills, no night sweats, no recurrent infections, no change in appetite, no change in energy and no significant changes in weight Respiratory: no cough, no wheezing, no shortness of breath, no hemoptysis Cardiovascular: no chest pain, no chest pressure, no palpitations and no swelling GI: No nausea, vomiting, or diarrhea Neurologic: See HPI. PAST MEDICAL HISTORY Diagnosis Date Migraine headaches Morbid obesity (HCC) PAST SURGICAL HISTORY Procedure Laterality Date CORE DECOMPRESSION - HIP Left 2010 EGD LAPAROSCOPY SURG CHOLECYSTECTOMY 12/07/14 ALLERGIES Baby Powder Pure Cornstarch [Harper Starch], Bee Venom Protein (Honey Bee), and Seasonal Allergies MEDICATIONS buPROPion XL (WELLBUTRIN XL) 150 mg 24 hr tablet If tolerated, increase to 2 tablets once daily. topiramate (TOPAMAX) 50 mg tablet Take 1 tablet by mouth twice daily. topiramate (TOPAMAX) 25 mg tablet Take 1 tablet with 50mg to equal a 75mg dose rizatriptan ([facility] MAGISTRATE) 10 mg disintegrating tablet Take 1 tablet by mouth as needed. May repeat in 2 hours if needed, not more than 2 in a day and 4 in a week lisinopril (ZESTRIL, PRINIVIL) 10 mg tablet Take 1 tablet by mouth once daily. ondansetron orally disintegrating (ZOFRAN ODT) 4 mg disintegrating tablet Take 1 tablet by mouth every 6 hours as needed for nausea/vomiting. FAMILY HISTORY Problem Relation Age of Onset Alcohol/Drug Maternal Grandfather Alcohol/Drug Paternal Grandfather Alcohol/Drug Father Cancer Maternal Grandfather Colon Cancer Paternal Grandfather Diabetes Maternal Grandfather Social History Tobacco Use Smoking status: Never Smoker Smokeless tobacco: Never Used Substance Use Topics Alcohol use: No Drug use: No EXAM: Virtual visit completed using video, limited exam completed. GENERAL: alert and appropriate, in no distress, well-hydrated, well nourished and happy, smiling, interactive EYES: no injection and visual acuity is grossly normal RESPIRATORY: breathing non-labored CHEST: equal chest rise with normal respiratory effort DATA REVIEWED: No new labs DTAP,TDAP,TD(1 - Tdap) due on 10/25/2022 PAP TESTING due on 10/25/2022 HEPATITIS C SCREENING due on 10/25/2022 HIV SCREENING due on 10/25/2022 COVID-19 VACCINE(2 - Booster for Lidia series) due on 10/25/2022 INFLUENZA(1) due on 02/28/2022 DEPRESSION SCREENING due on 09/27/2022 ANNUAL PCP TEAM CHRONIC DISEASE VISIT due on 01/03/2023 BP CONTROLLED (<130/80) due on 01/03/2023 ASSESSMENT/PLAN: 1. Other migraine without status migrainosus, not intractable - ICD9: 346.80, ICD10: G43.809 (primary diagnosis) - improved with current dose of topamax - will continue - follow up in 6 months - go to ER for severe headache, weakness, numbness, confusion, difficulty speaking, or any other urgent concern. 2. Adult ADHD - ICD9: 314.01, ICD10: F90.9 - controlled with current dose of wellbutrin - follow up in 6 months Prescription instructions reviewed with patient as applicable. Potential red flag symptoms discussed with the patient. Reviewed appropriate action plan to take if red flag symptoms occur. Patient agreeable to treatment plan. During this patient visit I have spent approximately 15 minutes in counseling regarding treatment options, medications, test results and coordinating care. Mirella Oconnell APRN.CNP documented in this encounter [facility] 01-03-2022 History of Presen t illness Narrative CC: Patient presents with: Recheck: Medication follow up HPI Francesca Kate is a 26 year old female who presents today for following up on Wellbutrin. Was started on this 6 weeks ago for ADHD and also was hoping it would continue her weight loss. States her concentration has improved with the Wellbutrin, but feels it might even be better with a small increase. Tolerating well. Sleep: is described as normal Appetite: good Stresses: Denies any major stressor. Suicidal Thoughts: No suicidal ideation, intent or plan Migraines: Has been topamax for prevention for almost a year with very minor headaches only around her period. Had 2 in the past week with one lasting for days. Took rizatriptan for them but did not help. Pain was behind right eye and described as a throbbing with occasional burning sensation, positive for nausea and light sensitivity. Unsure if this is a result of weather changes. Is going to switch jobs in a few weeks, and will not have insurance for a few months until new jobs benefits will kick in. REVIEW OF SYSTEMS General: no fevers, no chills, no night sweats, no recurrent infections, no change in appetite, no change in energy and no significant changes in weight HEENT: no changes in hearing, no visual changes, no nose bleeds, no sinus or nasal problems Respiratory: no cough, no wheezing, no shortness of breath, no hemoptysis Cardiovascular: no chest pain, no chest pressure, no palpitations and no swelling GI: No nausea, vomiting, or diarrhea Neurologic: No headache, weakness, numbness, tingling,dizziness, syncope. PAST MEDICAL HISTORY Diagnosis Date Migraine headaches Morbid obesity (HCC) PAST SURGICAL HISTORY Procedure Laterality Date CORE DECOMPRESSION - HIP Left 2010 EGD LAPAROSCOPY SURG CHOLECYSTECTOMY 12/07/14 ALLERGIES Baby Powder Pure Cornstarch [Harper Starch], Bee Venom Protein (Honey Bee), and Seasonal Allergies MEDICATIONS rizatriptan ([facility] [facility] MAGISTRATE) 10 mg disintegrating tablet Take 1 tablet by mouth as needed. May repeat in 2 hours if needed, not more than 2 in a day and 4 in a week buPROPion XL (WELLBUTRIN XL) 150 mg 24 hr tablet Take 1 tablet by mouth once daily. lisinopril (ZESTRIL, PRINIVIL) 10 mg tablet Take 1 tablet by mouth once daily. topiramate (TOPAMAX) 25 mg tablet Start at 25 mgs daily for a week followed 25 mgs 2 times a week to continue ondansetron orally disintegrating (ZOFRAN ODT) 4 mg disintegrating tablet Take 1 tablet by mouth every 6 hours as needed for nausea/vomiting. FAMILY HISTORY Problem Relation Age of Onset Alcohol/Drug Maternal Grandfather Alcohol/Drug Paternal Grandfather Alcohol/Drug Father Cancer Maternal Grandfather Colon Cancer Paternal Grandfather Diabetes Maternal Grandfather Social History Tobacco Use Smoking status: Never Smoker Smokeless tobacco: Never Used Substance Use Topics Alcohol use: No Drug use: No PHYSICAL EXAM BP 122/74 Pulse 80 Resp 16 Wt (!) 158.8 kg (350 lb) LMP 04/26/2021 BMI 62.02 kg/m General Appearance: well appearing, in no acute distress, alert Eyes: PERRLA, EOM's intact, conjunctiva pink and moist, no icterus, sclera white, non-injected Lungs: Lungs clear to auscultation. No wheezing, rhonchi, rales. Heart: RRR without murmur, gallop, or rubs. No ectopy Neurological: Gait normal. Reflexes normal and symmetric. Sensation grossly intact. Strength 5/5 to bilateral extremeties Health maintenance reviewed with patient: DTAP,TDAP,TD(1 - Tdap) due on 10/25/2022 PAP TESTING due on 10/25/2022 HPV VACCINE(1 - 2-dose series) due on 10/25/2022 HEPATITIS C SCREENING due on 10/25/2022 HIV SCREENING due on 10/25/2022 COVID-19 VACCINE(2 - Booster for Lidia series) due on 10/25/2022 INFLUENZA(1) due on 02/28/2022 DEPRESSION SCREENING due on 09/27/2022 BP CONTROLLED (<130/80) due on 10/25/2022 ANNUAL PCP TEAM CHRONIC DISEASE VISIT due on 11/22/2022 DATA REVIEWED: No new labs ASSESSMENT/PLAN: 1. Adult ADHD - ICD9: 314.01, ICD10: F90.9 (primary diagnosis) - wellbutrin working well, will increase but need to monitor migraines as there is a small possibility of wellbutrin causing this. - will have patient follow up in 3 weeks to re-evaluate before there is a break in insurance 2. BMI 60.0-69.9, adult (HCC) - ICD9: V85.44, ICD10: Z68.44 Weight decreasing Patient continues healthy choices with food and exercise. Continuing to lose weight. 3. Other migraine without status migrainosus, not intractable - ICD9: 346.80, ICD10: G43.809 - possible weather related or other cause. Wellbutrin can not be ruled out at this time as possible cause. Will increase the topiramate slightly to help prevent - TOPIRAMATE 25 MG TABLET - follow up in 3 weeks to re-evaluate Prescription instructions reviewed with patient as applicable. Potential red flag symptoms discussed with the patient. Reviewed appropriate action plan to take if red flag symptoms occur. Patient agreeable to treatment plan. Mirella Oconnell APRN.CNP documented in this encounter [facility] 11-22-2021 History of Presen t illness Narrative CC: Patient presents with: Weight Check HPI Francesca Kate is a 26 year old female who presents today for above. Currently finishing the 3/3 month of phentermine. Weight/BMI Last 1 Encounter Wt Readings: Date: Wt: 11/22/2021 162.4 kg (358 lb) BMI 63.43 kg/(m^2) Last visit Wt: 164.2 kg (362 lb) BMI: 64.14 kg/(m^2) DIET Daily serving of fruits:0 Daily serving of vegetables:1-2 Daily serving of protein:>5 Fluid intake:Water: 40-80 ounces per day Do you Skip meals:YES Which meals do you tend to skip? 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 Gets good choices like grilled chicken and vegetables. Exercise routine: Has not exercised for the last few weeks because of bruising her side at work, but is planning on restarting exercise. Medication side effects: Increased heart rate: No Insomnia: No Constipation: No Nervousness: No Impairment of concentration/attention, difficulty with memory, speech or language problems (particularly word-finding difficulties): No If DM any hypo/hyperglycemia: No Has noticed she can concentrate more with the medication which she didn't notice until starting the medication. Has a family history of ADD, but no personal diagnosis. ROS as above, otherwise non-contributory. Reviewed PMHx, PSHx, social Hx, medications and allergies. PHYSICAL EXAM BP 132/78 Pulse 82 Resp 16 Wt (!) 162.4 kg (358 lb) LMP 04/26/2021 BMI 63.43 kg/m General Appearance: well appearing, in no acute distress, alert Eyes: conjunctiva pink and moist, no icterus, sclera white, non-injected Lungs: Lungs clear to auscultation. No wheezing, rhonchi, rales. Heart: RRR without murmur, gallop, or rubs. No ectopy Adult ADD 11/22/2021 Trouble wrapping up final details of projects 3 - Often Difficulty getting order on tasks requiring organization 2 - Sometimes Have problems remembering appts/obligations 4 - Very Often Avoid/delay tasks requiring a lot of thought 4 - Very Often Fidget/squirm when sitting a long time 4 - Very Often Feel overly active/compelled to do things 2 - Sometimes Part A - Total 19 Careless Mistakes on boring/difficult projects 3 - Often Difficult keeping attention on boring/repetitive work 4 - Very Often Difficulty concentrating on what people say 2 - Sometimes Misplace/difficulty finding things at home/work 4 - Very Often Distracted by activity/noise 4 - Very Often Leave your seat when expected to remain seated 1 - Rarely Feel restless/fidgety 2 - Sometimes Difficulty unwinding/relaxing when you have time 3 - Often Talk too much in social situations 3 - Often Finish other's sentences 4 - Very Often Difficulty waiting your turn 4 - Very Often Interrupt others when they are busy 2 - Sometimes Part B - Total 46 ASSESSMENT/PLAN: 1. BMI 60.0-69.9, adult (HCC) - ICD9: V85.44, ICD10: Z68.44 (primary diagnosis) - patient starting her 6 months off of phentermine. Instructed to continue with exercise and diet changes. Starting patient on wellbutrin for ADHD, hopefully this will help her lose weight as well - discussed bariatric surgery because I feel this might be a great option for patient but patient not interested at this time/. 2. Encounter for weight loss counseling - ICD9: V65.3, ICD10: Z71.3 As above 3. Adult ADHD - ICD9: 314.01, ICD10: F90.9 - Rating high on scale - wellbutrin as prescribed. - follow up in 4-6 weeks - [facility] and after hours crisis line Prescription instructions reviewed with patient as applicable. Potential red flag symptoms discussed with the patient. Reviewed appropriate action plan to take if red flag symptoms occur. Patient agreeable to treatment plan. Mirella Oconnell APRN.CNP documented in this encounter [facility] 10-25-2021 History of Presen t illness Narrative CC: Patient presents with: Recheck: Adipex follow up HPI Francesca Kate is a 26 year old female who presents today for above. Currently taking phentermine Recently started Month 3 of 3 Weight/BMI Last 1 Encounter Wt Readings: Date: Wt: 10/25/2021 164.2 kg (362 lb) BMI 64.14 kg/(m^2) Last visit Wt: 166.9 kg (368 lb) BMI: 65.20 kg/(m^2) DIET Daily serving of fruits:0 Daily serving of vegetables:1-2 Daily serving of protein:>5 Fluid intake:Water: 40-80 ounces per day Do you Skip meals:YES Which meals do you tend to skip? Breakfast Food Behaviors: none at this time Eating away from home:YES resterauntTwice weekly,but tries to choose healthy options like chicken breasts and steamed vegetables. Exercise routine: YES Swims 3 days a week and does cardio once a week. Medication side effects: Increased heart rate: No Insomnia: No Constipation: No Nervousness: No Impairment of concentration/attention, difficulty with memory, speech or language problems (particularly word-finding difficulties): No - this has actually improved. If DM any hypo/hyperglycemia: No ROS as above, otherwise non-contributory. Reviewed PMHx, PSHx, social Hx, medications and allergies. PHYSICAL EXAM BP 128/82 Pulse 88 Resp 16 Wt (!) 164.2 kg (362 lb) LMP 04/26/2021 BMI 64.14 kg/m General Appearance: well appearing, in no acute distress, alert Pysch: mood and affect broad and appropriate Lungs: Lungs clear to auscultation. No wheezing, rhonchi, rales. Heart: RRR without murmur, gallop, or rubs. No ectopy ASSESSMENT/PLAN: 1. BMI 60.0-69.9, adult (HCC) - ICD9: V85.44, ICD10: Z68.44 Weight decreasing - Behavioral intervention and - Pharmacological intervention - continue the last month of phentermine. Discussed Contraindications, went over each one and over side effects. tolerance, continuity of medication, controlled medication so cannot be replaced if stolen or if lost. Advised exercising along with this will really help the patient reach her goal of loosing weight. Short term use of this med was discussed. Negative for all the following :Hypersensitivity or idiosyncrasy to phentermine or other sympathomimetic amines or any component of the formulation; history of cardiovascular disease (arrhythmias, congestive heart failure, coronary artery disease, stroke, uncontrolled hypertension); hyperthyroidism, glaucoma, agitated states, history of drug abuse; use during or within 14 days following MAO inhibitor therapy; , breast-feeding. Prescription instructions reviewed with patient as applicable. Potential red flag symptoms discussed with the patient. Reviewed appropriate action plan to take if red flag symptoms occur. Patient agreeable to treatment plan. Mirella Oconnell APRN.CNP documented in this encounter [facility] 10-19-2021 Miscellaneous Notes PDMP website checked and validated. All prescriptions have been APPROPRIATELY filled. No suspicious activity was identified. 10/19/2021 by Mirella Oconnell APRN.GIOVANI Patient has been identified by name and date of : Yes Patient phones for refill(s): Pending Prescriptions Disp Refills PHENTERMINE 37.5 MG TABLET 30 tablet 0 Sig: Take 1 tablet by mouth once daily for 30 days. JOANNE Class: C-IV SUSY: No Date of last office visit in primary care:09/27/21 Please advise. Thank you. Araceli Drummond LPN documented in this encounter [facility] 09-27-2021 History of Presen t illness Narrative CC: Patient presents with: Recheck: Adipex follow up HPI Francesca Kate is a 26 year old female who presents today for above. Currently taking adipex. Starting Month 2 of 3 Weight/BMI Last 1 Encounter Wt Readings: Date: Wt: 09/27/2021 166.9 kg (368 lb) BMI 65.20 kg/(m^2) Last visit Wt: 166.5 kg (367 lb) BMI: 65.03 kg/(m^2) Has lost 9lbs since last visit. DIET Daily serving of fruits:0 Daily serving of vegetables:0 Daily serving of protein:3-5 Fluid intake:Water: 40-80 ounces per day Do you Skip meals:YES Which meals do you tend to skip? Breakfast is now starting to have a protein shake Food Behaviors: Denies over eating or eating when not hungry Eating away from home:YES Fast-food/fast-casual daily. Patient does not cook so tries to get salad option. Tries to maintain low carbs. Going to gym 3 days a week including cardio, swimming. And is walking her dog every day. Medication side effects: Increased heart rate: No Insomnia: No Constipation: No Nervousness: No Impairment of concentration/attention, difficulty with memory, speech or language problems (particularly word-finding difficulties): No Takes before bed because it makes her tired. If DM any hypo/hyperglycemia: No ROS as above, otherwise non-contributory. Reviewed PMHx, PSHx, social Hx, medications and allergies. PHYSICAL EXAM BP 130/84 Pulse 92 Resp 16 Wt (!) 166.9 kg (368 lb) LMP 04/26/2021 BMI 65.20 kg/m General Appearance: well appearing, in no acute distress, alert Eyes: conjunctiva pink and moist, no icterus, sclera white, non-injected Lungs: Lungs clear to auscultation. No wheezing, rhonchi, rales. Heart: RRR without murmur, gallop, or rubs. No ectopy ASSESSMENT/PLAN: 1. BMI 60.0-69.9, adult (HCC) - ICD9: V85.44, ICD10: Z68.44 Weight decreasing - need to increase fruits and vegetables and try to decrease eating out - will continue adipex at this time - follow up in 4 weeks Prescription instructions reviewed with patient as applicable. Potential red flag symptoms discussed with the patient. Reviewed appropriate action plan to take if red flag symptoms occur. Patient agreeable to treatment plan. Mirella Oconnell APRN.CNP documented in this encounter [facility] Diagnosis Morbid obesity (HCC) Morbid obesity [facility] Diagnosis BMI 60.0-69.9, adult (HCC)- Primary Body Mass Index 60.0-69.9, adult [facility] Diagnosis BMI 60.0-69.9, adult (HCC)- Primary Body Mass Index 60.0-69.9, adult Encounter for weight loss counseling Dietary surveillance and counseling Adult ADHD Attention deficit disorder with hyperactivity [facility] Diagnosis Adult ADHD- Primary Attention deficit disorder with hyperactivity BMI 60.0-69.9, adult (HCC) Body Mass Index 60.0-69.9, adult Other migraine without status migrainosus, not intractable [facility] Diagnosis Other migraine without status migrainosus, not intractable- Primary Adult ADHD Attention deficit disorder with hyperactivity [facility] Diagnosis Essential hypertension- Primary Unspecified essential hypertension Migraine without status migrainosus, not intractable, unspecified migraine type Adult ADHD Attention deficit disorder with hyperactivity Annual physical exam Routine general medical examination at a health care facility [facility] Diagnosis Annual physical exam- Primary Routine general medical examination at a health care facility Migraine without status migrainosus, not intractable, unspecified migraine type Adult ADHD Attention deficit disorder with hyperactivity Essential hypertension Unspecified essential hypertension Morbid obesity (HCC) Morbid obesity [facility] Diagnosis Intractable migraine without aura and with status migrainosus- Primary Migraine without aura, with intractable migraine, so stated, with status migrainosus [facility] Diagnosis Encounter for IUD insertion- Primary Encounter for insertion of intrauterine contraceptive device [facility] Diagnosis Other migraine without status migrainosus, not intractable- Primary Essential hypertension Unspecified essential hypertension Class 3 severe obesity with serious comorbidity and body mass index (BMI) of 60.0 to 69.9 in adult, unspecified obesity type (HCC) [facility] Diagnosis Iron deficiency- Primary Iron deficiency anemia, unspecified [facility] Diagnosis Iron deficiency anemia, unspecified iron deficiency anemia type- Primary [facility] Diagnosis Migraine with aura and without status migrainosus, not intractable- Primary Migraine with aura, without mention of intractable migraine without mention of status migrainosus Essential hypertension Unspecified essential hypertension [facility] Diagnosis Leukocytosis, unspecified type- Primary documented in this encounter [facility] for referral (narrative)* Outpatient Procedure (Routine) - Pending Review Specialty Diagnoses / Procedures Referred By Angelic lazaro Referred To Contact [facility] Diagnoses Encounter for IUD insertion Procedures INSERT INTRAUTERINE DEVICE INSERT INTRAUTERINE DEVICE Kayley Enriquez APRN.MARKET RESEARCH ANALYST [address] [place] [address] [facility] [address] [place] [address] Referral ID Status Reason Start Date Expiration Date Visits Requested Visits Authorized [id number] Pending Review Auto-Generat ed Referral 01/14/2023 01/14/2024 1 1 [facility] Summary Purpose Family History No Family History Records FoundNo Family History Records FoundNo Family History Records Found Advance Directives No Advanced Directives Records FoundNo Advanced Directives Records FoundNo Advanced Directives Records Found Medications Administered Section Inactive Administered Medications - up to 3 most recent administrations Medication Order MAR Action Action Date Dose Rate Site keTORolac 30 mg injection (Toradol) 30 mg, INTRAMUSCULAR, ONCE, 1 dose, On Fri12/27/22 at 0900, Ketorolac (Toradol) is indicated for the short-term (up to 5 days) management of moderately severe acute pain. Continuation of ketorolac (Toradol) beyond 5 days increases the risk of developing serious adverse events. Please verify the duration of therapy for ketorolac (Toradol), If ordered PRN for pain, patient/guardian may elect to receive this medication for higher pain levels INSTEAD of the opioid, if preferred: Yes Given 12/27/2022 8:48 AM EDT 30 mg Arm, Left Inactive Administered Medications - up to 3 most recent administrations Medication Order MAR Action Action Date Dose Rate Site levonorgestrel 21 mcg/24 hours (8 yrs) 52 mg 1 Each intrauterine device (MIRENA) 1 Each, INTRAUTERINE, ONCE (UP TO 30 DAYS AMB), 1 dose, On Fri01/14/23 at 1600, Hazardous Potential Reproductive Risk Drug: Use appropriate PPE. Given 01/14/2023 3:49 PM EDT 1 Each Reason for Referral Specialty Diagnoses / Procedures Referred By Contac t Referred To Contact Neurology Diagnoses Migraine with aura and without status migrainosus, not intractable Procedures CONSULT TO NEUROLOGY OFFICE/OUTPATIENT [facility] 60 MINUTES Mirella Oconnell APRN.MARKET RESEARCH ANALYST [address] [place] [address] Referral ID Status Reason Start Date Expiration Date Visits Requested Visits Authorized [id number] Authorized PCP Requested Referral 08/08/2023 08/07/2024 1 1 Specialty Diagnoses / Procedures Referred By Contac t Referred To Contact CT IMAGING Diagnoses Migraine with aura and without status migrainosus, not intractable Procedures CT BRAIN WO IVCON CT HEAD/BRAIN W/O CONTRAST MATERIAL Mirella Oconnell APRN.MARKET RESEARCH ANALYST [address] [place] [address] [place] [id number] Referral ID Status Reason Start Date Expiration Date V isits Requested Visits Authorized [id number] Open Auto-Generate d Referral 08/08/2023 09/06/2024 1 1 Additional Source Comments INFORMATION SOURCE (unrecogn ized section and content) DATE CREATED AUTHOR AUTHOR'S ORGANIZ ATION 07/09/2023 [facility] ([place]) DATE CREATED AUTHOR AUTHOR'S ORGANIZ ATION 08/18/2023 [facility] Source Comments (unrecognize d section and content) In the event this informatio n is protected by the Federal Confidentiality of Alcohol and Drug Abuse Patient Records regulations: The Federal rules restrict any use of the information to criminally investigate or prosecute any alcohol or drug abuse patient.[facility] the event this information is protected by the Federal Confidentiality of Alcohol and Drug Abuse Patient Records regulations: The Federal rules restrict any use of the information to criminally investigate or prosecute any alcohol or drug abuse patient.[facility] the event this information is protected by the Federal Confidentiality of Alcohol and Drug Abuse Patient Records regulations: The Federal rules restrict any use of the information to criminally investigate or prosecute any alcohol or drug abuse patient.[facility] the event this information is protected by the Federal Confidentiality of Alcohol and Drug Abuse Patient Records regulations: The Federal rules restrict any use of the information to criminally investigate or prosecute any alcohol or drug abuse patient.[facility] the event this information is protected by the Federal Confidentiality of Alcohol and Drug Abuse Patient Records regulations: The Federal rules restrict any use of the information to criminally investigate or prosecute any alcohol or drug abuse patient.[facility] HospitalIn the event this information is protected by the Federal Confidentiality of Alcohol and Drug Abuse Patient Records regulations: The Federal rules restrict any use of the information to criminally investigate or prosecute any alcohol or drug abuse patient.[facility] HospitalIn the event this information is protected by the Federal Confidentiality of Alcohol and Drug Abuse Patient Records regulations: The Federal rules restrict any use of the information to criminally investigate or prosecute any alcohol or drug abuse patient.[facility] HospitalIn the event this information is protected by the Federal Confidentiality of Alcohol and Drug Abuse Patient Records regulations: The Federal rules restrict any use of the information to criminally investigate or prosecute any alcohol or drug abuse patient.[facility] HospitalIn the event this information is protected by the Federal Confidentiality of Alcohol and Drug Abuse Patient Records regulations: The Federal rules restrict any use of the information to criminally investigate or prosecute any alcohol or drug abuse patient.[facility] HospitalIn the event this information is protected by the Federal Confidentiality of Alcohol and Drug Abuse Patient Records regulations: The Federal rules restrict any use of the information to criminally investigate or prosecute any alcohol or drug abuse patient.[facility] HospitalIn the event this information is protected by the Federal Confidentiality of Alcohol and Drug Abuse Patient Records regulations: The Federal rules restrict any use of the information to criminally investigate or prosecute any alcohol or drug abuse patient.[facility] HospitalIn the event this information is protected by the Federal Confidentiality of Alcohol and Drug Abuse Patient Records regulations: The Federal rules restrict any use of the information to criminally investigate or prosecute any alcohol or drug abuse patient.[facility] HospitalIn the event this information is protected by the Federal Confidentiality of Alcohol and Drug Abuse Patient Records regulations: The Federal rules restrict any use of the information to criminally investigate or prosecute any alcohol or drug abuse patient.[facility] HospitalIn the event this information is protected by the Federal Confidentiality of Alcohol and Drug Abuse Patient Records regulations: The Federal rules restrict any use of the information to criminally investigate or prosecute any alcohol or drug abuse patient.[facility] HospitalIn the event this information is protected by the Federal Confidentiality of Alcohol and Drug Abuse Patient Records regulations: The Federal rules restrict any use of the information to criminally investigate or prosecute any alcohol or drug abuse patient.[facility] HospitalIn the event this information is protected by the Federal Confidentiality of Alcohol and Drug Abuse Patient Records regulations: The Federal rules restrict any use of the information to criminally investigate or prosecute any alcohol or drug abuse patient.[facility] HospitalIn the event this information is protected by the Federal Confidentiality of Alcohol and Drug Abuse Patient Records regulations: The Federal rules restrict any use of the information to criminally investigate or prosecute any alcohol or drug abuse patient.[facility] HospitalIn the event this information is protected by the Federal Confidentiality of Alcohol and Drug Abuse Patient Records regulations: The Federal rules restrict any use of the information to criminally investigate or prosecute any alcohol or drug abuse patient.[facility] HospitalIn the event this information is protected by the Federal Confidentiality of Alcohol and Drug Abuse Patient Records regulations: The Federal rules restrict any use of the information to criminally investigate or prosecute any alcohol or drug abuse patient.[facility] HospitalIn the event this information is protected by the Federal Confidentiality of Alcohol and Drug Abuse Patient Records regulations: The Federal rules restrict any use of the information to criminally investigate or prosecute any alcohol or drug abuse patient.[facility] Reason for Visit (unrecogniz ed section and content) Specialty Diagnoses / Procedures Referred By Angelic lazaro Referred To Contact Internal Medicine / INTERNAL MEDICINE Diagnoses Follow-up examination 4 week weight follow up Procedures OFFICE/OUTPATIENT ESTABLISHED MOD MDM 30-39 MIN 4C EST Mirella Oconnell APRN.MARKET RESEARCH ANALYST [address] [place] [address] Mirella Oconnell APRN.MARKET RESEARCH ANALYST [address] [place] [address] Referral ID Status Reason Start Date Expiration Date Visits Re quested Visits Authorized [id number] Closed 10/25/2021 06/29/2022 1 1 Reason Onset Date Comments Refill Request 10/18/2021 Reason Comments Weight Check Reason Comments Recheck Medication follow up Reason Comments Headache Behavioral Problem Reason Comments Medication Question Reason Comments Recheck Medication follow up Reason Comments Refill Request Reason Comments Yearly Exam Annual visit Reason Comments Recheck 4 week migraine foll ow up Reason Onset Date Comments Insertion Of IUD 01/14/2023 Specialty Diagnoses / Procedures Referred By Angelic lazaro Referred To Contact [facility] Diagnoses General counseling and advice for contraceptive management Encounter for insertion of intrauterine contraceptive device Encounter for removal of intrauterine contraceptive device Procedures INSERT INTRAUTERINE DEVICE LEVONORGESTREL IU 52MG 5 YR INSERT INTRAUTERINE DEVICE REMOVE INTRAUTERINE DEVICE Kayley Enriquez APRN.MARKET RESEARCH ANALYST [address] [place] [address] [facility] [address] [place] [address] Referral ID Status Reason Start Date Expiration Date Visits Requested Visits Authorized [id number] Authorized Auto-Generat ed Referral 01/03/2023 06/29/2023 2 2 Reason Comments Medication Problem Reason Comments Results Reason Comments Recheck 6 month follow up Care Teams (unrecognized sec tion and content) 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 Relationship Specialty Start Date End Date Lili Adhikari MD [address] [place] [address] PCP - General Internal Medicine 05/15/21 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 Relationship Specialty Start Date End Date Lili Adhikari MD [address] [place] [address] PCP - General Internal Medicine 05/15/21 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 Relationship Specialty Start Date End Date Lili Adhikari MD [address] [place] [address] PCP - General Internal Medicine 05/15/21 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 Relationship Specialty Start Date End Date Lili Adhikari MD [address] [place] [address] PCP - General Internal Medicine 05/15/21 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 Relationship Specialty Start Date End Date Lili Adhikari MD [address] [place] [address] PCP - General Internal Medicine 05/15/21 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 Relationship Specialty Start Date End Date Lili Adhikari MD [address] [facility] [place] [address] PCP - General Internal Medicine 05/15/21 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 Relationship Specialty Start Date End Date Lili Adhikari MD [address] [facility] [place] [address] PCP - General Internal Medicine 05/15/21 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 Relationship Specialty Start Date End Date Lili Adhikari MD [address] [facility] [place] [address] PCP - General Internal Medicine 05/15/21 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 Relationship Specialty Start Date End Date Lili Adhikari MD [address] [facility] [place] [address] PCP - General Internal Medicine 05/15/21 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 Relationship Specialty Start Date End Date Lili Adhikari MD [address] [facility] [place] [address] PCP - General Internal Medicine 05/15/21 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 Relationship Specialty Start Date End Date Lili Adhikari MD [address] [facility] [place] [address] PCP - General Internal Medicine 05/15/21 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 Relationship Specialty Start Date End Date Lili Adhikari MD [address] [facility] [place] [address] PCP - General Internal Medicine 05/15/21 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 Relationship Specialty Start Date End Date Lili Adhikari MD [address] [facility] [place] [address] PCP - General Internal Medicine 05/15/21 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 This clinical summary was aggregated from multiple sources. Caution should be exercised in using it in the provision of clinical care. This summary normalizes information from multiple sources, and as a consequence, information in this document may materially change the coding, format and clinical context of patient data. In addition, data may be omitted in some cases. CLINICAL DECISIONS SHOULD BE BASED ON THE PRIMARY CLINICAL RECORDS. [email or web address] provides no warranty or guarantee of the accuracy or completeness of information in this document.
== END | disposition home or self-care (01) ==
LOC: LABSPEC 16:32
PROVIDERS: PCP Internal Medicine; Visit Provider Pharmacist Pharmacist Clinician (PhC)/ Clinical Pharmacy Specialist
DX: R10.11 Right upper quadrant pain (principal); R11.0 Nausea
CPT/HCPCS: 82150; 83690